=== PATIENT | female | born 1995 | race Caucasian/White ===

== ENCOUNTER → 2023-08-30 | Outpatient (CLI) | payer OTHER, SELFPAY ==
[2023-08-30 15:27] LABS: Bacteria 0 SEEN /hpf (None Seen); Mucous, Urine 0 SEEN /hpf (<or=2+); Red Blood Cells-Urine 0 SEEN /hpf (0-5); Squamous Epithelial Cells - UA 0 SEEN /hpf (5-10)
--- OUTSIDE RECORDS SUMMARY | 2023-08-30 15:43 | XMS RPT_ITS | CCD ---
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 Name Role Phone Maya SUPERVISOR DATA PROCESSING, Lynnette Moreno Unavailable MAISHA FARMER Attending Unavailable REFERRED, SELF Referring Unavailable MIRIAM MORENO Primary Care Unavailable ALOK SCHILLING Attending Unavailable REFERRED, SELF Referring Unavailable MIRIAM MORENO Primary Care Unavailable YOSHI GAONA Attending Unavailable REFERRED, SELF Referring Unavailable ALOK SCHILLING Primary Care Unavailable ALOK SCHILLING Attending Unavailable REFERRED, SELF Referring Unavailable ALOK SCHILLING Primary Care Unavailable ALOK SCHILLING Attending Unavailable REFERRED, SELF Referring Unavailable TONIE ALOK Primary Care Unavailable Samia Paige MD Primary Care Provider [phone] BLESSING LENZ Attending Unavailable SAMIA PAIGE Primary Care Unavailable Allergies Allergy Classification Reported Allergen(s) Allergy Type Date of Onset Reaction(s) Facility (3 sources) minocycline drug allergy 7 [facility] (3 sources) sulfamethoxazole / trimethoprim drug allergy 7 [facility] (3 sources) Sulfamethoxazole / Trimethoprim; Translations: [SULFAMETHOXAZOLE-TR IMETHOPRIM] Drug Allergy 5 [facility] Repository (3 sources) Tetracycline; Translations: [TETRACYCLINE] Drug Allergy 0 [facility] Repository (2 sources) Minocycline; Translations: [MINOCYCLINE] Drug Allergy 5 [facility] Medications Completed/Discontinued Medications Medication Drug Class(es) Dates Sig (Normalized) Sig (Original) citric acid 0.01 mg/mg / lactic acid 0.018 mg/mg / potassium bitartrate 0.004 mg/mg vaginal gel (2 sources) Calculi Dissolution Agent, Anti-coagulant Start: 06-01-2023 End: 06-01-2023 lactic idpe-nwpcfc-exqerv ium (PHEXXI) 1.8-1-0.4 % gel Insert 1 prefilled applicator vaginally immediately before or up to 1 hour before each act of vaginal intercourse 60 g 3 06/01/2023 Active Problems Problem Classification Problem Date Documented Da te Episodic/Chronic Disorders of lipid metabolism (1 source) Pure hypercholesterolemi a; Translations: [Pure hypercholesterolemi a, unspecified] Onset: 02-13-2023 06-01-2023 Chronic Menstrual disorders (1 source) Dysmenorrhea; Translations: [Dysmenorrhea, unspecified] Onset: 10-25-2015 10-25-2015 Chronic Other gastrointestinal disorders (1 source) Irritable bowel syndrome characterized by constipation; Translations: [Irritable bowel syndrome with constipation] Onset: 02-13-2023 06-01-2023 Chronic Unclassified (2 sources) Contraception care education ; Translations: [Other specified counseling] Onset: 05-22-2017 05-22-2017 Results Test Name Value Interpretation Reference Range Facil ity Vital Signs Date Time Vital Sign Value Performing Clinician Facility 05-22-2017 08:03-0400 BMI (Body Mass Index) 20.77 kg/m2 Lynnette Trejo NP [facility] 05-22-2017 08:03-0400 Body Temperature 96.3 [degF] Lynnette Trejo NP [facility] 05-22-2017 08:03-0400 BP Diastolic 67 mm[Hg] Lynnette Trejo NP [facility] 05-22-2017 08:03-0400 BP Systolic 100 mm[Hg] Lynnette Trejo [facility] 05-22-2017 08:03-0400 Height 162.56 cm Lynnette Trejo NP [facility] 05-22-2017 08:03-0400 Pulse (Heart Rate) 89 /min Lynnette Trejo [facility] 05-22-2017 08:03-0400 Respiratory Rate 16 /min Lynnette Trejo NP [facility] 05-22-2017 08:03-0400 Weight 54.89 kg Lynnette Trejo NP [facility] 05-22-2017 08:03-0400 Weight 54.88 kg Lynnette Trejo SUPERVISOR DATA PROCESSING [facility] Encounters Encounter Date Encounter Type Care Provider Facility Start: 06-01-2023 Telephone encounter Blessing rojas PIPE CUTTER.MAXIMILIANO Work Phone: OB/Gynecology Procedures Date Procedure Procedure Detail Performing Clinician Start: 05-22-2017 Contraception care education Contraception counseling Lynnette Trejo NP Plan of Treatment Date Care Activity Detail Author Start: 01-23-2028 Urine microalbumin profile DTaP,Tdap,Td Vaccine (2 - Td or Tdap) [facility] Start: 04-21-2025 Pap Testing Pap Testing [facility] Start: 05-04-2023 Influenza vaccination Influenza Vaccine (#1) [facility] Start: 09-03-2022 Depression Assessment Depression Assessment [facility] Start: 03-17-2021 Covid-19 Vaccine (2 - Booster for Jeffery series) Covid-19 Vaccine (2 - Booster for Jeffery series) [facility] Start: 05-25-2017 End: 05-25-2017 Appointment Appointment [facility] Start: 05-22-2017 End: 05-22-2017 Appointment Appointment [facility] Start: 2011 Peds To Adult Transition Annual Assessment Peds To Adult Transition Annual Assessment [facility] Start: 2009 Peds To Adult Transition Initial Discussion Peds To Adult Transition Initial Discussion [facility] Start: 1997 Hepatitis B Vaccine (1 of 3 - 3-dose series) Hepatitis B Vaccine (1 of 3 - 3-dose series) [facility] en's Care [facility] Immunizations Immunization Date Immunization Notes Care Provider Fa cility 07-10-2022 influenza virus vacc ine, unspecified formulation Blessing Deisi PIPE CUTTER.CHAIRMAN & CHIEF EXECUTIVE OFFICER Work Phone: [facility] 05-24-2021 influenza, high dose seasonal, preservative-free Blessing Deisi PIPE CUTTER.CHAIRMAN & CHIEF EXECUTIVE OFFICER Work Phone: [facility] 06-11-2019 influenza, injectabl e, quadrivalent, contains preservative Blessing [place] PIPE CUTTER.CHAIRMAN & CHIEF EXECUTIVE OFFICER Work Phone: [facility] Payers Date Payer Category Payer Private Health Insurance [facility] [id number] 2022-Present [phone] [address] [place] [id number] PPO [id number] 2022 Private Health Insurance [id number] 1997 Unknown [id number] 1997 Unknown [id number] 1997 Unknown [id number] 1997 Unknown [id number] 1997 Unknown [id number] Unknown [id number] Social History Date Type Detail Facility Start: 06-01-2023 Tobacco smoking stat [facility] Never smoked tobacco [facility] Work Phone: Start: 06-01-2023 Tobacco use and exposure Smokeless tobacco non-user [facility] Work Phone: Start: 06-01-2023 Alcohol intake Current drinke r of alcohol (finding) [facility] Start: 07-20-2020 End: 06-01-2023 History of Social function [facility] Start: 07-20-2020 End: 06-01-2023 Social connection and isolation panel [facility] Frequency of Social Gatherings with Friends and Family Not on file [facility] Work Phone: Do you belong to any clubs or organizations such as cheondoism groups, unions, fraternal or athletic groups, or school groups? No [facility] How often to you hav e a drink containing alcohol? 2-3 time sa week [facility] How many standard drinks containing alcohol do you have on a typical day? 1 or 2 [facility] How often do you hav e 6 or more drinks on 1 occasion? Never [facility] Do you feel stress - tense, restless, nervous, or anxious, or unable to sleep at night because your mind is troubled all the time - these days [OSQ] To some extent [facility] (I/We) worried wheth er (my/our) food would run out before (I/we) got money to buy more. Never true [facility] Work Phone: Start: 07-06-2020 Education 17 [facility] Start: 06-11-2019 Alcohol Comment social [facility] Start: 1997 Sex Assigned At Female C [facility] Start: 06-05-2019 Gender identity Identifies as female gender (finding) [facility] Start: 06-05-2019 Sexual orientation Heterosexual (maribel figueroa) [facility] NEGATED: Highlighted rowStart: NINF History of tobacco use Passive smoker [facility] Work Phone: Note 06-01-2023 Telephone Encounter - Blessing Lenz APRN.CNP - 06/01/2023 4:05 PM EDTTelephone Encounter - Anne Velasquez LPN - 06/01/2023 3:55 PM EDT Note Date & Type Note Facility 06-01-2023 Miscellaneous Notes Formattin g of this note might be different from the original. RX sent to [facility]. Blessing Lenz APRN.CNP Spoke with pt and she would like for you to sent to [facility] pharmacy. No need to call pt back. Anne Velasquez LPN I will send it to the [facility] if the pt would like me to do that. Please check with her. Blessing Lenz APRN.CNP Received denial for Phexxi. Please advise. Storm through [employer] is over $300. Anne Velasquez LPN Prior authorization submitted for Phexxi. Will await further response from pt's insurance. Anne Velasquez LPN documented in this encounter [facility] Progress note 06-01-2023 Note Date & Type Note Facility 06-01-2023 Note HNO ID: [id number] Author: Blessing Lenz APRN.CHAIRMAN & CHIEF EXECUTIVE OFFICER Service: ? 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 Menses: cycles every 30-33 days and 6 days of flow. Contraception: none-natural family planning HPV vaccine: Yes Last Pap: 04/28/2022 normal HPV: N/A History of abnormal pap: No Last mammogram: never Sexually active: Yes Pain with intercourse: No Postcoital bleeding: No OB History T0 L0 SAB0 IAB0 Ectopic0 Multiple0 Live Births0 Inverform Machine Operator History LMP: 04/30/2023, Having periods Age at Menarche: Age at First : Age at Menopause: Inverform Machine Operator History Comments: Sexual Activity: Yes; Male Contraception: Condom, Pill PAST MEDICAL HISTORY Diagnosis Date Seasonal allergies PAST SURGICAL HISTORY Procedure Laterality Date PAST SURGICAL HISTORY OF age 3 eye surgery FAMILY HISTORY Problem Relation Age of Onset other (Other) Mother caity Skin Cancer Mother Hypertension Father other (Dementia) Maternal Grandmother Cancer Paternal Grandmother skin Colon Cancer Paternal Grandmother Diabetes Paternal Grandfather Cancer Paternal Uncle skin SOCIAL HISTORY Social History Tobacco Use Smoking status: Never Passive exposure: Never Smokeless tobacco: Never Vaping Use Vaping Use: Never used Substance Use Topics Alcohol use: Yes Comment: social Drug use: No REVIEW OF SYSTEMS Abdomen: No abdominal pain, nausea, vomiting, diarrhea, or constipation. No bloating, early satiety, indigestion, or increased flatulence. Bladder: No dysuria, gross hematuria, urinary frequency, urinary urgency, or incontinence. Breast: No breast lumps, nipple d/c, overlying skin changes, redness or skin retraction. Allergies and current medication updated:Yes EXAM: Ht 5' 4 (1.63m) Wt 117 lb 6.4 oz (53.3kg) LMP 04/30/2023 BMI 20.14 kg/(m2). GENERAL: pleasant, female in no apparent distress HEENT: Normocephalic, atraumatic, mucus membranes moist, and no lesions NECK: Supple, full range of motion, no adenopathy, and thyroid normal DERMATOLOGY: Normal, without lesions, non-icteric, and non-hirsute BREAST: soft, non-tender, symmetric, no dominant mass, normal nipple-areolar complex, no lymphadenopathy, and no nipple discharge CHEST: Normal inspiratory effort ABDOMEN: soft, non-tender, and no masses PELVIC: external genitalia normal, normal Bartholin's glands, urethra, Beaulieu's glands, no vulvar lesions, no cervical lesions, good vaginal support, physiologic discharge present, normal appearing perineal body and perianal region BIMANUAL: uterus normal size, shape and consistency, no adnexal masses, and non-tender RECTOVAGINAL: deferred. NEURO: alert and oriented x3,exam grossly non-focal EXTREMITIES: normal ASSESSMENT/PLAN: 1) Health maintenance: Pap/HPV up to date. Mammogram starting age 40. Nutrition, exercise and routine health maintenance exams reviewed. Calcium/Vitamin D supplementation information provided. HPV vaccine: completed series 2) Contraception: natural family planning. Contraceptive options reviewed and information provided. 3) STD screening: Declined STD check. 4) Follow up one year or sooner as needed Phexxi and natural cycles kit RX given Blessing Lenz APRN.CNP [facility] Summary Purpose Family History No Family History Records FoundNo Family History Records Found Advance Directives No Advanced Directives Records FoundNo Advanced Directives Records Found Reason for Referral Specialty Diagnoses / Procedures Referred By Cameron martínez Referred To Contact Blessing Lenz APRN.MAXIMILIANO [address] [place] [address] Referral ID Status Reason Start Date Expiration Date Visits Re quested Visits Authorized [id number] Closed 1 1 Additional Source Comments INFORMATION SOURCE (unrecogn ized section and content) DATE CREATED AUTHOR AUTHOR'S NACHO ATION 06/08/2023 [facility] Source Comments (unrecognize d section and content) In the event this informatio n is protected by the Federal Confidentiality of Alcohol and Drug Abuse Patient Records regulations: The Federal rules restrict any use of the information to criminally investigate or prosecute any alcohol or drug abuse patient.[facility] Reason for Visit (unrecogniz ed section and content) Care Teams (unrecognized sec tion and content) FOR RECORDS PERTAINING TO PATIENTS WHO ARE OR HAVE BEEN ENROLLED IN A CHEMICAL DEPENDENCY/SUBSTANCEABUSE PROGRAM, SOME INFORMATION MAY BE OMITTED. This clinical summary was aggregated from multiple sources. Caution should be exercised in using it in the provision of clinical care. This summary normalizes information from multiple sources, and as a consequence, information in this document may materially change the coding, format and clinical context of patient data. In addition, data may be omitted in some cases. CLINICAL DECISIONS SHOULD BE BASED ON THE PRIMARY CLINICAL RECORDS. [employer] [facility]. provides no warranty or guarantee of the accuracy or completeness of information in this document.
[2023-08-30 17:33] LABS: Color, Urine Straw (Yellow); Glucose, Dipstick Normal (Normal); Ketone-Dipstick Negative (Negative); Leukocyte Esterase-Dipstick 100 /ul (Negative); Nitrite-Dipstick Negative (Negative); Occult Blood-Urine 25 /ul (Negative); Protein-Dipstick Negative (Negative); Specific Gravity, Urine 1.005 (1.002-1.030); Urine Bilirubin Dipstick Negative (Negative); Urine Clarity Clear (Clear); Urine Urobilinogen Normal (Normal); Urine pH 6.5 (5.0 - 8.0)
[2023-08-30 17:48] LABS: White Blood Cells 0-5 SEEN /hpf (0-5)
== END | disposition home or self-care (01) ==
PROVIDERS: PCP Internal Medicine; Visit Provider Physician Assistant Surgical
DX: R30.0 Dysuria (principal)
CPT/HCPCS: 81001; 87086

== ENCOUNTER → 2023-12-26 | Outpatient (CLI) | payer OTHER, SELFPAY | END | disposition home or self-care (01) | LOC: LAB 10:20 | PROVIDERS: PCP Internal Medicine; Referring Provider Physician Assistant; Visit Provider Physician Assistant | DX: N39.0 Urinary tract infection, site not specified (principal) | CPT/HCPCS: 87086; 87088 ==

== ENCOUNTER → 2025-07-03 | Outpatient (CLI) | payer OTHER, SELFPAY ==
--- NOTE | 2025-07-03 09:01 | US_ITS ---
PROCEDURE: TRANSVAGINAL W/PREG US 07/03/2025 REASON FOR EXAM: WELLBEING TECHNIQUE: Procedure Code: [id number] Modality: US Procedure: TRANSVAGINAL W/PREG US COMPARISON: None. FINDINGS Single intrauterine gestation is seen. CRL: 9 mm (7 weeks and 0 days) heart rate: 125 bpm. The yolk sac is normal. Estimated date of delivery by ultrasound is February 17, 2026. Uterus: The uterus measures 9.2 x 5.6 x 5.5 cm. Homogenous appearance without evidence of discrete cyst, echogenic calculi, or mass. Multiple simple nabothian cysts visualized in the cervix. Right ovary: The right ovary is normal in size measuring 3.7 x 3 x 2 cm. Probable corpus luteal cyst. Blood flow to the adnexa is normal with arterial and venous waveforms documented. Left ovary: The left ovary is normal in size measuring 3.6 x 3 x 1.7 cm. No suspicious masses. Blood flow to the adnexa is normal with arterial and venous waveforms documented. No ascites. US/Transvaginal w/Preg US IMPRESSION: 1. Single living intrauterine gestation with an estimated age of 7 weeks and 0 days. Recommend anatomic survey at 18-22 weeks estimated gestational age. 2. heart rate of 125 bpm. Reading Location: [id number]
== END | disposition home or self-care (01) ==
LOC: US 08:59
PROVIDERS: PCP Internal Medicine; Referring Provider Obstetrics & Gynecology; Visit Provider Obstetrics & Gynecology
DX: N91.2 Amenorrhea, unspecified (principal)
CPT/HCPCS: 76817

== ENCOUNTER → 2025-07-17 | Outpatient (CLI) | payer OTHER, SELFPAY ==
[2025-07-20 21:07] LABS: Chlamydia By Nucleic Acid AMP Negative (Negative); Gonococcus By Nucleic Acid AMP Negative (Negative)
== END | disposition home or self-care (01) ==
LOC: LABSPEC 16:51
PROVIDERS: PCP Internal Medicine; Referring Provider Obstetrics & Gynecology; Visit Provider Obstetrics & Gynecology
DX: O09.90 Supervision of high risk pregnancy, unspecified, unspecified trimester (principal); Z12.4 Encounter for screening for malignant neoplasm of cervix; Z3A.00 Weeks of gestation of pregnancy not specified
CPT/HCPCS: 87086; 87491; 87591; 88175; G0145

== ENCOUNTER → 2025-07-28 | Outpatient (CLI) | payer OTHER, SELFPAY ==
[2025-07-28 14:46] LABS: Hematocrit 36.5 % (37-47); Hemoglobin 12.7 g/dL (12.0-15.0); Immature Granulocytes Count 0.030 X10^3/uL (0.0-0.0); Mean Corp Hgb Conc 34.8 g/dL (32-36); Mean Corpuscular Volume 91.7 fL (81-99); Mean Platelet Vol. 8.8 fl (6.2-12.0); NRBC Flagged by Analyzer 0 % (0-5); Platelet Count 247 K/mm3 (150-450); RBC Distribution Width CV 12.5 % (11.6-14.6); RBC Distribution Width SD 42.1 fl (35.1-43.9); Red Blood Count 3.98 M/mm3 (4.2-5.4); White Blood Count 7.2 K/mm3 (4.4-11.0)
[2025-07-28 17:25] LABS: HIV Nonreactive (Nonreactive); Hepatitis B Surface Antigen Nonreactive (Nonreactive); Hepatitis C Antibody Nonreactive (Nonreactive); Syphilis Antibodies Nonreactive (Nonreactive)
--- OUTSIDE RECORDS SUMMARY | 2025-07-28 18:38 | XMS RPT_ITS | CCD ---
Author Organization [facility] Care Team Providers Care Artist Representative Name Role Phone Maya CERTIFIED HAND THERAPIST, Lynnette Moreno Unavailable MAISHA FARMER Attending Unavailable REFERRED, SELF Referring Unavailable ALLIE MORENO Primary Care Unavailable AGUSTINA SCHILLING Attending Unavailable REFERRED, SELF Referring Unavailable ALLIE MORENO Primary Care Unavailable YOSHI GAONA Attending Unavailable REFERRED, SELF Referring Unavailable SCHILLING, AGUSTINA Primary Care Unavailable SCHILLING, AGUSTINA Attending Unavailable REFERRED, SELF Referring Unavailable SCHILLING, AGUSTINA Primary Care Unavailable SCHILLINGAGUSTINA Attending Unavailable REFERRED, SELF Referring Unavailable SCHILLING, AGUSTINA Primary Care Unavailable Benjie KAUR, Diana Primary Care Provider BLESSING LIPSCOMB Attending Unavailable DIANA PAIGE Primary Care Unavailable Dr. Kaylyn Walter Primary Care Provider Dr. Kaylyn Walter Referring Provider [phone] NED Edouard Attending Provider [phone] Dr. Kaylyn Walter Primary Care Provider Dr. Kaylyn Walter Referring Provider [phone] Taina MARINO, PA Roman Carr Attending Provider Cornell CERTIFIED HAND THERAPIST-CSurekha Primary Care Provider Cornell CERTIFIED HAND THERAPIST-CSurekha Referring Provider [phone] Singh DIEHL-CRadha Attending Provider Dr. Kaylyn Walter MD Primary Care Provider Assessment, Health Risk Attending Provider Unava ilable Assessment, Health Risk Referring Provider Unava ilable Jose Angel KAUR, Dr. Patiño Attending Provider [facility], Kaylyn Primary Care Unavailable Rosaura Iniguez Attending Unavaillianna e Jose Angel, Kaylyn Referring Unavailable Rosaura Iniguez Attending Unavaillianna e Rosaura Iniguez Referring Unavailabl e Jose Angel, Kaylyn Primary Care Unavailable Assessment, Health Risk Attending Unavaila ble Assessment, Health Risk Referring Unavaila ble [facility], Kaylyn Primary Care Unavailable GarfieldulloSurekha Referring Unavailable [facility], Kaylyn Primary Care Unavailable Lazaro Walterycia Attending Unavailable [facility], Kaylyn Referring Unavailable Demetria Kate Attending Unavailable Jose Angel, Kaylyn Primary Care Unavailable Ferullo, Surekha Primary Care Unavailable FerulloShwetaSurekha Referring Unavailable Radha Winters Attending Unavailable Allergies Allergy Classification Reported Allergen(s) Allergy Type Date of Onset Reaction(s) Facility (3 sources) minocycline drug allergy 7 [facility] (3 sources) sulfamethoxazole / trimethoprim drug allergy 7 [facility] (3 sources) Sulfamethoxazole / Trimethoprim; Translations: [SULFAMETHOXAZOLE-TR IMETHOPRIM] Drug Allergy 5 [facility] Repository (8 sources) Tetracycline; Translations: [TETRACYCLINE] Drug Allergy 0 [facility] Repository (2 sources) Minocycline; Translations: [MINOCYCLINE] Drug Allergy 5 [facility] (4 sources) Sulfamethoxazole Drug Allergy 3 [facility] (4 sources) Trimethoprim Drug Allergy 3 [facility] (1 source) Sulfamethoxazole Drug Allergy 5 [facility] Repository (1 source) Trimethoprim Drug Allergy 5 [facility] Repository Medications Current Medications Medication Drug Class(es) Dates Sig (Normalized) Sig (Original) acne vitamin (2 sources) Start: 03-20-2024 acne vitamin Active OTHER March 20, 2024 12:00am choline 500 mg oral tablet (1 source) Start: 03-26-2025 take 1 tablet by mouth once daily Choline Bitartrate 500 mg tablet Active 500 mg PO daily March 26, 2025 12:00am D-Mannose (4 sources) Start: 02-14-2022 take 1 capsule by mouth once as needed D-Mannose 500 mg capsule Active mg PO .prn February 14, 2022 12:00am Start: 02-14-2022 take 1 mg by mouth o nce as needed D-Mannose Active MG PO .prn February 14, 2022 12:00am Start: 02-14-2022 take 1 mg by mouth o nce as needed D-Mannose Active MG PO .prn February 13, 2022 11:00pm Magnesium Glycinate 100 mg magnesium capsule (1 source) Start: 03-26-2025 Magnesium Glyc inate 100 mg magnesium capsule Active mg PO March 26, 2025 12:00am Multivitamin preparation (2 sources) Start: 02-14-2022 take 1 tablet by mouth once daily Multivitamin Active 1 TABLET PO DAILY February 14, 2022 12:00am Start: 02-14-2022 take 1 tablet by catalina once daily Multivitamin Active 1 TABLET PO DAILY February 13, 2022 11:00pm Multivitamin tablet (2 sources) Start: 02-14-2022 Multivitamin t ablet Active 1 {tbl} PO DAILY February 14, 2022 12:00am New[place]-3 Fatty Acids-Fish Oil (Fish Oil Pearls) 300-400 mg capsule (4 sources) Start: 02-14-2022 [place]-3 Fatty Acids-Fish Oil (Fish Oil Pearls) 300-400 mg capsule Active 1 NMA PO DAILY February 14, 2022 12:00am Start: 02-14-2022 take 1 capsule by mo [facility] once daily [place]-3 Fatty Acids-Fish Oil (Fish Oil Pearls) 300-400 mg capsule Active 1 CAP PO DAILY February 14, 2022 12:00am Start: 02-14-2022 take 1 capsule by mo uth once daily [place]ry-3 Fatty Acids-Fish Oil (Fish Oil Pearls) 300-400 mg capsule Active 1 CAP PO DAILY February 13, 2022 11:00pm pms vitamin (2 sources) Start: 03-20-2024 pms vitamin Ac tive OTHER March 20, 2024 12:00am Completed/Discontinued Medications Medication Drug Class(es) Dates Sig (Normalized) Sig (Original) amoxicillin 500 mg oral capsule (4 sources) Penicillin-class Antibacterial Start: 11-29-2022 End: 12-09-2022 take 1 capsule by mouth three times daily Amoxicillin 500 mg capsule Discontinued 500 mg PO THREE TIMES A DAY 30 10 0 November 29, 2022 12:00am December 08, 2022 12:00am December 09, 2022 12:11am cephalexin 500 mg oral capsule (4 sources) Cephalosporin Antibacterial Start: 08-30-2023 End: 09-09-2023 take 1 capsule by mouth every twelve hours Cephalexin 500 mg capsule Discontinued 500 mg PO Q12H 20 10 0 August 30, 2023 1:00am September 08, 2023 1:00am September 09, 2023 1:04am citric acid 0.01 mg/mg / lactic acid 0.018 mg/mg / potassium bitartrate 0.004 mg/mg vaginal gel (2 sources) Calculi Dissolution Agent, Anti-coagulant Start: 06-01-2023 End: 06-01-2023 lactic xoqb-ulntwg-ybrytl ium (PHEXXI) 1.8-1-0.4 % gel Insert 1 prefilled applicator vaginally immediately before or up to 1 hour before each act of vaginal intercourse 60 g 3 06/01/2023 Active Comment on above: Insert 1 prefilled a pplicator vaginally immediately before or up to 1 hour before each act of vaginal intercourse Cranberry (4 sources) Non-Standardized Food Allergenic Extract, Non-Standardized Plant Allergenic Extract Start: 02-14-2022 End: 03-20-2024 take 1 capsule by mouth at mealtime Cranberry 500 mg capsule Discontinued 500 mg PO .prn February 14, 2022 12:00am March 20, 2024 1:00pm administer with meals Start: 02-14-2022 take 500 mg by mouth at mealti me Cranberry Active 500 MG PO .prn February 14, 2022 12:00am administer with meals Start: 02-14-2022 take 500 mg by mouth at mealti me Cranberry Active 500 MG PO .prn February 13, 2022 11:00pm administer with meals docosahexaenoic acid/epa (FISH OIL ORAL) (1 source) docosahexaenoic acid/epa (FISH OIL ORAL) Take by mouth. 0 Active Comment on above: Take by mouth. 21 day ethinyl estradiol 0.150767 mg/hr / etonogestrel 0.005 mg/hr vaginal ring (2 sources) Progestin, Estrogen Start: 05-23-2017 NUVARING 0.12-0.015 MG/24HR RING 1 vaginally as directed ETONOGESTREL-ETHINYL ESTRADIOL [id number] Lynnette Trejo CERTIFIED HAND THERAPIST Start: 05-23-2017 NUVARING 0.12- 0.015 MG/24HR RING 1 vaginally as directed ETONOGESTREL-ETHINYL ESTRADIOL [id number] Lynnette Trejo CERTIFIED HAND THERAPIST Levonorgestrel-Ethinyl Estrad (8 sources) Progestin, Estrogen, Progestin-containing Intrauterine Device Start: 02-14-2022 End: 02-12-2023 take 1 tablet by mouth once daily Levonorgestrel-Ethinyl Estrad (Larissia) 0.1-20 mg-mcg tablet Discontinued 1 {tbl} PO DAILY 84 February 14, 2022 3:39pm February 12, 2023 7:38am Uses contraception Other specified health status Start: 02-14-2022 End: 02-12-2023 take 1 tablet by mouth once daily Levonorgestrel-Ethinyl Estrad (Larissia) 0.1-20 mg-mcg tablet Discontinued 1 {tbl} PO DAILY February 14, 2022 3:39pm February 12, 2023 7:38am Start: 02-14-2022 End: 02-12-2023 take 1 tablet by mouth once daily Levonorgestrel-Ethinyl Estrad (Larissia) 0.1-20 mg-mcg tablet Discontinued 1 TABLET PO DAILY February 14, 2022 3:39pm February 12, 2023 7:38am Start: 02-14-2022 End: 02-12-2023 take 1 tablet by mouth once daily Levonorgestrel-Ethinyl Estrad (Larissia) 0.1-20 mg-mcg tablet Discontinued 1 TABLET PO DAILY February 14, 2022 2:39pm February 12, 2023 6:38am Start: 02-14-2022 End: 02-14-2022 take 1 tablet by mouth once daily Levonorgestrel-Ethinyl Estrad (Larissia) 0.1-20 mg-mcg tablet Discontinued 1 {tbl} PO DAILY February 14, 2022 12:00am February 14, 2022 3:40pm Start: 02-14-2022 End: 02-14-2022 take 1 tablet by mouth once daily Levonorgestrel-Ethinyl Estrad (Larissia) 0.1-20 mg-mcg tablet Discontinued 1 TABLET PO DAILY February 14, 2022 12:00am February 14, 2022 3:40pm Start: 02-14-2022 End: 02-14-2022 take 1 tablet by mouth once daily Levonorgestrel-Ethinyl Estrad (Larissia) 0.1-20 mg-mcg tablet Discontinued 1 TABLET PO DAILY February 13, 2022 11:00pm February 14, 2022 2:40pm NORGESTIMATE-ETH ESTRADIOL (2 sources) Progestin, Estrogen Start: 05-22-2017 SPRINTEC 28 0.25-35 MG-MCG TABS NORGESTIMATE-ETH ESTRADIOL [id number] Lynnette Trejo CERTIFIED HAND THERAPIST Start: 05-22-2017 End: 05-23-2017 SPRINTEC 28 0.25-35 MG-MCG T ABS NORGESTIMATE-ETH ESTRADIOL [id number] Lynnette Trejo CERTIFIED HAND THERAPIST FA/mv,Ca,iron,min/lycopene/l ut (MULTIVITAL ORAL) (1 source) FA/mv,Ca,iron,mi n/lycopene/lut (MULTIVITAL ORAL) Take by mouth. 0 Active Comment on above: Take by mouth. fosfomycin 3000 mg powder fo r oral solution (7 sources) S t a r t : 0 4 - 2 4 - 2 0 2 4 E n d : 0 7 - 1 8 - 2 0 2 4 take 3 g by mouth once as needed Fosfomycin Tromethamine 3 gram packet Discontinued 3 g PO ONCE as needed March 20, 2024 1:00pm March 20, 2024 1:23pm miSOPROStol 0.2 mg oral tabl et (5 sources) Prostaglandin E1 Analog S t a r t : 0 9 - 1 9 - 2 0 1 7 E n d : 0 9 - 2 0 - 2 0 1 7 take 2 tablets by mouth once daily CYTOTEC 200 MCG TABS 2 tab po night prior and day of procedure MISOPROSTOL [id number] Lynnette Trejo CERTIFIED HAND THERAPIST Start: 05-22-2017 End: 05-23-2017 take 2 tablets by mouth once daily CYTOTEC 200 MCG TABS 2 tab po night prior and day of procedure MISOPROSTOL [id number] Lynnette Trejo CERTIFIED HAND THERAPIST Start: 05-22-2017 take 2 tablets by mo uth once daily CYTOTEC 200 MCG TABS 2 tab po night prior and day of procedure MISOPROSTOL [id number] Lynnette Trejo CERTIFIED HAND THERAPIST montelukast 10 mg oral tablet (17 sources) Leukotriene Receptor Antagonist Start: 02-14-2022 End: 03-26-2025 take 1 tablet by mouth once daily Montelukast (Singulair) 10 mg tablet Discontinued 10 mg PO DAILY 90 0 February 02, 2023 3:55pm February 12, 2023 7:45am Seasonal allergies Other seasonal allergic rhinitis NORGESTIMATE-ETH ESTRADIOL (3 sources) Start: 05-22-2017 End: 05-23-2017 SPRINTEC 28 0.25-35 MG-MCG TABS NORGESTIMATE-ETH ESTRADIOL [id number] Lynnette Trejo CERTIFIED HAND THERAPIST Start: 05-22-2017 SPRINTEC 28 0. 25-35 MG-MCG TABS NORGESTIMATE-ETH ESTRADIOL [id number] Lynnette Trejo CERTIFIED HAND THERAPIST Problems Problem Classification Problem Date Documented Da te Episodic/Chronic Administrative/social admission (1 source) First encounter by subject; Translations: [Persons encountering health services in other specified circumstances] 03-26-2025 Episodic Allergic reactions (5 sources) Allergic condition; Translations: [Allergy, unspecified, initial encounter] 02-14-2022 Episodic Contraceptive and procreative management (2 sources) Patient encounter status; Translations: [Encounter for other procreative management] 02-13-2025 Episodic Disorders of lipid metabolism (5 sources) Pure hypercholesterolemi a; Translations: [Pure hypercholesterolemi a, unspecified] Onset: 02-13-2023 06-01-2023 Chronic Genitourinary symptoms and ill-defined conditions (2 sources) History of urinary tract infection; Translations: [Personal history of urinary (tract) infections] 03-20-2024 Episodic Immunizations and screening for infectious disease (4 sources) Contact with and (suspected) exposure to other viral communicable diseases; Translations: [Contact with or suspected exposure to other viral communicable disease] 02-12-2023 Episodic Menstrual disorders (2 sources) Dysmenorrhea; Translations: [Dysmenorrhea, unspecified] Onset: 10-25-2015 10-25-2015 Chronic Other gastrointestinal disorders (1 source) Irritable bowel syndrome characterized by constipation; Translations: [Irritable bowel syndrome with constipation] Onset: 02-13-2023 06-01-2023 Chronic Other gastrointestinal disorders (5 sources) Irritable bowel syndrome; Translations: [Irritable bowel syndrome without diarrhea] 02-14-2022 Chronic Other upper respiratory disease (1 source) Other seasonal allergic rhinitis; Translations: [Other seasonal allergic rhinitis] Onset: 03-26-2025 Chronic Other upper respiratory infections (8 sources) Acute sinusitis; Translations: [Acute sinusitis, unspecified] 02-12-2023 Episodic Unclassified (2 sources) Contraception care education ; Translations: [Other specified counseling] Onset: 05-22-2017 05-22-2017 Urinary tract infections (4 sources) Urinary tract infection, site not specified; Translations: [Urinary tract infection, site not specified] 08-30-2023 Episodic Results Test Name Value Interpretation Reference Range Facility Office Visit Reporton 2024 Office Visit Report [facility] [address] [place] [id number] OFFICE VISIT Date of Service: 07/03/25 MR#: [id number] Acct: [id number] Patient: SCARLET HERNANDEZ Rep #: [id number] : 1995 Provider: KEDAR Mix ams Age/Sex: 30/F [place] [facility] [place] Signed Intake Vital Signs 03/26/25 14:08 07/03/25 09:06 Height 5 ft 4 in 5 ft 4 in Weight: 118 lb 6 oz 120 lb 6 oz BMI 20.3 20.6 BP 116/70 102/68 Blood Pressure Location Lt brachial Position Sitting Respiration 16 Pulse 86 Pulse Source Monitor Temp 98.0 F Temp Source Temporal Pulse Oximetry (%) 96 Oxygen Delivery Method room air Intake Visit Reasons: PNOB Vitals Education Chief Complaint: In person PNOB Allergies sulfamethoxazole (From Bactrim) Allergy (Intermediate, Verified 07/03/25 08:16) hives tetracycline Allergy (Intermediate, Verified 07/03/25 08:16) hives trimethoprim (From Bactrim) Allergy (Intermediate, Verified 07/03/25 08:16) hives Medications ???Medication ???Instructions ???Recorded ???Confirmed ???Type omega-3 fatty acids 300 mg-fish 1 cap PO DAILY 02/14/22 07/03/25 H istory oil 400 mg capsule (Fish Oil Pearls) choline bitartrate 500 mg tablet 500 mg PO QDAY 03/26/25 07/03/25 H istory magnesium glycinate mg PO 03/26/25 07/03/25 History vits no.126-ferrous fum tab PO 07/03/25 07/03/25 History 28 mg iron-folic acid 800 mcg tablet (Classic ) Is last menstrual period known: Yes Post menopausal: No Patient : Yes Nurse's Note: Pt here for secondary amenorrhea. Vitals WNL. PNOB questions completed. Problem list, allergies, and medications updated. First trimester ACOG education completed. Assessment and Plan Assessment and Plan Orders: Orders CBC W/Diff, Automated 07/03/25 O09.90 - Supervision of high risk , unspecified, unspecified trimester Type Screen 07/03/25 O09.90 - Supervision of high risk , unspecified, unspecified trimester Rubella IgG 07/03/25 O09.90 - Supervision of high risk , unspecified, unspecified trimester Hepatitis C Antibody 07/03/25 O09.90 - Supervision of high risk , unspecified, unspecified trimester Hepatitis B Surface Antigen 07/03/25 O09.90 - Supervision of high risk , unspecified, unspecified trimester Culture, Urine 07/03/25 O09.90 - Supervision of high risk , unspecified, unspecified trimester Syphilis Antibodies 07/03/25 O09.90 - Supervision of high risk , unspecified, unspecified trimester Chlamydia/GC MAGALI aptima 07/03/25 O09.90 - Supervision of high risk , unspecified, unspecified trimester HIV 07/03/25 O09.90 - Supervision of high risk , unspecified, unspecified trimester PAP I-G w/rfx hrHPV-Aptima 07/03/25 Z12.4 - Encounter for screening for malignant neoplasm of cervix 07/06/25 1225 Date Demetria Kate CNM Cosigner Signature: Date (if applicable) CC: Normal [facility] Transvaginal w/Preg USon Transvaginal w/Preg US [facility] [address] [place] [address] [id number] Transvaginal w/Preg US MR#: [id number] Acct: [id number] Name: SCARLET HERNANDEZ Rep #: [id number] : 1995 F 30 From: Jan Victor DO PCP: Dr. Kaylyn Walter MD Status: [facility] Study: Transvaginal w/Preg US Date of Exam: 07/03/25 Exam# [id number] Ordering Dr: Rosaura Iniguez DO PROCEDURE: TRANSVAGINAL W/PREG US 07/03/2025 REASON FOR EXAM: WELLBEING TECHNIQUE: Procedure Code: USTVAGP Modality: US Procedure: TRANSVAGINAL W/PREG US COMPARISON: None. FINDINGS Single intrauterine gestation is seen. CRL: 9 mm (7 weeks and 0 days) heart rate: 125 bpm. The yolk sac is normal. Estimated date of delivery by ultrasound is February 17, 2026. Uterus: The uterus measures 9.2 x 5.6 x 5.5 cm. Homogenous appearance without evidence of discrete cyst, echogenic calculi, or mass. Multiple simple nabothian cysts visualized in the cervix. Right ovary: The right ovary is normal in size measuring 3.7 x 3 x 2 cm. Probable corpus luteal cyst. Blood flow to the adnexa is normal with arterial and venous waveforms documented. Left ovary: The left ovary is normal in size measuring 3.6 x 3 x 1.7 cm. No suspicious masses. Blood flow to the adnexa is normal with arterial and venous waveforms documented. No ascites. US/Transvaginal w/Preg US IMPRESSION: 1. Single living intrauterine gestation with an estimated age of 7 weeks and 0 days. Recommend anatomic survey at 18-22 weeks estimated gestational age. 2. heart rate of 125 bpm. Reading Location: [id number] CC: Dr. Kaylyn Walter MD; Dr. Rosaura Iniguez DO Security Compliance Specialist: Signed Normal [facility] Internal Medicine Office Vis itojulissa 03-25-2025 Internal Medicine Office Visit [facility] [address] [place] [address] [address] [place], [place] [id number] OFFICE VISIT Date of Service: 03/26/25 MR#: [id number] Acct: [id number] Name: SCARLET HERNANDEZ Rep #: [id number] : 1995 Provider: Dr. Kaylyn nieves MD Age/Sex: 29/F Location: [facility] [place] Status: Signed Intake Vital Signs 02/13/25 11:11 03/26/25 14:08 Height 5 ft 4 in 5 ft 4 in Weight: 118 lb 6 oz BMI 20.3 BP 116/70 Blood Pressure Location Lt brachial Position Sitting Respiration 16 Pulse 86 Pulse Source Monitor Temp 98.0 F Temp Source Temporal Pulse Oximetry (%) 96 Oxygen Delivery Method room air Intake Visit Reasons: YEARLY/RE-EST, SUREKHA PATIENT-OK PER DR WALTER Chief Complaint: Annual Cable Armorer Required: No Accompanied by: Self Is patient in pain?: No Allergies sulfamethoxazole (From Bactrim) Allergy (Intermediate, Verified 03/26/25 14:10) hives tetracycline Allergy (Intermediate, Verified 03/26/25 14:10) hives trimethoprim (From Bactrim) Allergy (Intermediate, Verified 03/26/25 14:10) hives Medications ???Medication ???Instructions ???Recorded ???Confirmed ???Type d-mannose 500 mg capsule mg PO .prn 02/14/22 03/26/25 Histo ry multivitamin 1 tab PO DAILY 02/14/22 03/26/25 H istory omega-3 fatty acids 300 mg-fish 1 cap PO DAILY 02/14/22 03/26/25 H istory oil 400 mg capsule (Fish Oil Pearls) acne vitamin OTHER 03/20/24 03/26/25 History fosfomycin tromethamine 3 gram 3 g PO ONCE PRN dysuria #3 ea 03/26/25 Rx oral packet pms vitamin OTHER 03/20/24 03/26/25 History choline bitartrate 500 mg tablet 500 mg PO QDAY 03/26/25 03/26/25 H istory magnesium glycinate mg PO 03/26/25 03/26/25 History montelukast 10 mg tablet 10 mg PO DAILY PRN 03/26/25 History (Singulair) Nurse's Note: Yearly. [facility] Medical History (Updated 03/26/25 @ 14:[address] Kaylyn Walter MD) GERARDO (generalized anxiety disorder) IBS (irritable bowel syndrome) High cholesterol UTI (urinary tract infection) Allergies Surgical History History of removal of skin mole History of eye surgery Family History (Updated 03/26/25 @ 14:[address] Kaylyn Walter MD) Mother Asthma Arthritis Autoimmune disorder RA and fibromyalgia Osteoporosis Skin cancer Brother Asthma Sister Thyroid disorder Thyroid cancer Father Arthritis Hypertension Grandfather Diabetes Cancer pancreatic Grandmother Colon cancer Melanoma Hypertension Uncle Melanoma Social History (Updated 03/26/25 @ 14:[address] 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 1. Little interest or pleasure in doing things: not at all 2. Feeling down, depressed, or hopeless: not at all 3. Trouble falling or staying asleep, or sleeping too much: not at all 4. Feeling tired or having little energy: not at all 5. Poor appetite or overeating: not at all 6. Feeling bad about yourself - or that you are a failure or have let yourself and your family down: not at all 7. Trouble concentrating on things, such as reading the newspaper or watching television: not at all 8. Moving or speaking so slowly that other people could have noticed? - Or the opposite - being so fidgety or restless that you have been moving around a lot more than usual: not at all 9. Thoughts that you would be better off or of hurting yourself in some way: not at all Total score: 0 If you checked off any problems, how difficult have these problems made it for you to do your work, take care of things at home, or get along with other people?: not difficult at all Source: Developed by Drs. Geovani Loza, Keira Kate, Wayne Mobley and colleagues, with an educational ileana from [employer]. GERARDO-7 BMS GERARDO-7 Feeling nervous, anxious, or on edge: 1 = Several days Not being able to stop or control worryin = Not at all Worrying too much about different things: 0 = Not at all Trouble relaxin = Not at all Being so restless that it is hard to sit still: 0 = Not at all Becoming easily annoyed or irritable: 0 = Not at all Feeling afraid as if something awful might happen: 0 = (more content not included)... Normal [facility] Absolute lymphocyte countOrd ered By: HEALTH ASSESSMENT on 03-13-2025 Lymphocytes Auto (Unsp spec) [#/Vol] 1.87 10*3/uL 0.83-4.51 [facility] Absolute neutrophil countOrd ered By: HEALTH ASSESSMENT on 03-13-2025 Neutrophils (Bld) [#/Vol] 2.6 10*3/uL 2.0-7.7 [facility] Absolute nucleated red blood cell countOrdered By: HEALTH ASSESSMENT on 03-13-2025 Nucleated RBC (Bld) [#/Vol] 0.00 10*3/uL 0-5 [facility] Anion gap in Serum or Plasma Ordered By: HEALTH ASSESSMENT on 03-13-2025 Anion gap [Moles/Vol] 9 mmol/L 5- [facility] BUN/creatinine ratioOrdered By: HEALTH ASSESSMENT on 03-13-2025 Urea nitrogen/Creatinine [Mass ratio] 22.0 mg/mg High 10- [facility] Bilirubin directOrdered By: HEALTH ASSESSMENT on 03-13-2025 Bilirubin.direct [Mass/Vol] 0.18 mg/dL 0.00-0.30 [facility] Bilirubin, totalOrdered By: HEALTH ASSESSMENT on 03-13-2025 Bilirubin [Mass/Vol] 0.44 mg/dL 0.00-1.30 [place] [facility] Employeeon 03-13-2025 Absolute Lymph 1.87 X10 3/uL Normal 0.83-4.51 [facility] Comment on above: Performed By: #### L 100.0200, L400.0100, L500.2900 #### [facility] Laboratory [address] [place], [address] Absolute Neut 2.6 X10 3/uL Normal 2.0-7.7 [facility] Comment on above: Performed By: #### L 100.0200, L400.0100, L500.2900 #### [facility] Laboratory [address] [place], [address] Basophils/100 WBC (Bld) 0.6 % Normal 0-1 [facility] Comment on above: Performed By: #### L 100.0200, L400.0100, L500.2900 #### [facility] Laboratory [address] [place], [address] Eosinophils/100 WBC (Bld) 3.0 % Normal 0-5 [facility] Comment on above: Performed By: #### L 100.0200, L400.0100, L500.2900 #### [facility] Laboratory [address] [place], [address] Erythrocyte distribution width (RBC) [Ratio] 12.2 % Normal 11.6-14.6 [facility] Comment on above: Performed By: #### L 100.0200, L400.0100, L500.2900 #### [facility] Laboratory [address] [place], [address] Hematocrit (Bld) [Volume fraction] 38.1 % Normal 37-47 [facility] Comment on above: Performed By: #### L 100.0200, L400.0100, L500.2900 #### [facility] Laboratory [address] [place], [address] Hemoglobin (Bld) [Mass/Vol] 12.7 g/dL Normal 12.0-15.0 [facility] Comment on above: Performed By: #### L 100.0200, L400.0100, L500.2900 #### [facility] Laboratory [address] [place], [address] Lymphocytes/100 WBC (Bld) 37.0 % Normal 19-41 [facility] Comment on above: Performed By: #### L 100.0200, L400.0100, L500.2900 #### [facility] Laboratory [address] [place], [address] MCH (RBC) [Entitic mass] 31.2 pg Normal 27.0-32.0 [facility] Comment on above: Performed By: #### L 100.0200, L400.0100, L500.2900 #### [facility] Laboratory [address] [place], [address] MCHC (RBC) [Mass/Vol] 33.3 g/dL Normal 32-36 [facility] Comment on above: Performed By: #### L 100.0200, L400.0100, L500.2900 #### [facility] Laboratory [address] [place], [address] MCV (RBC) [Entitic vol] 93.6 fL Normal 81-99 [facility] Comment on above: Performed By: #### L 100.0200, L400.0100, L500.2900 #### [facility] Laboratory [address] [place], [address] Monocytes/100 WBC (Bld) 7.3 % Normal 0-10 [facility] Comment on above: Performed By: #### L 100.0200, L400.0100, L500.2900 #### [facility] Laboratory [address] [place], [address] Neutrophils/100 WBC (Bld) 51.7 % Normal 47-70 [facility] Comment on above: Performed By: #### L 100.0200, L400.0100, L500.2900 #### [facility] Laboratory [address] [place], [address] NRBC # 0.00 10 3/uL Normal 0-5 [facility] Comment on above: Performed By: #### L 100.0200, L400.0100, L500.2900 #### [facility] Laboratory [address] [place], [address] Nucleated RBC (Bld) [#/Vol] 0 10*3/uL Normal 0-5 [facility] Comment on above: Performed By: #### L 100.0200, L400.0100, L500.2900 #### [facility] Laboratory [address] [place], [address] Platelet mean volume (Bld) [Entitic vol] 9.1 fL Normal 6.2-12.0 [facility] Comment on above: Performed By: #### L 100.0200, L400.0100, L500.2900 #### [facility] Laboratory [address] [place], [address] Platelets (Bld) [#/Vol] 240 10*3/uL Normal 150-450 [facility] Comment on above: Performed By: #### L 100.0200, L400.0100, L500.2900 #### [facility] Laboratory [address] [place], [address] RBC (Bld) [#/Vol] 4.07 10*6/uL Low 4.2-5.4 [facility] Comment on above: Performed By: #### L 100.0200, L400.0100, L500.2900 #### [facility] Laboratory [address] [place], [address] RDW SD 42.2 fl Normal 35.1-43.9 [facility] Comment on above: Performed By: #### L 100.0200, L400.0100, L500.2900 #### [facility] Laboratory [address] [place], [address] WBC (Bld) [#/Vol] 5.1 10*3/uL Normal 4.4-11.0 [facility] Comment on above: Performed By: #### L 100.0200, L400.0100, L500.2900 #### [facility] Laboratory [address] [place], [address] Calculated very low density lipoprotein (VLDL) cholesterol measurementOrdered By: HEALTH ASSESSMENT on 03-13-2025 Calculated very low density lipoprotein (VLDL) cholesterol measurement 13 mg/dL 5-40 [facility] Carbon dioxide, total [Moles /volume] in Central venous bloodOrdered By: HEALTH ASSESSMENT on 03-13-2025 CO2 [Moles/Vol] 25.7 mmol/L 21.0-32.0 [facility] Chloride assayOrdered By: ALTH ASSESSMENT on 03-13-2025 Chloride [Moles/Vol] 107 mmol/L 98-108 [facility] Employee Profileon Cholesterol in LDL [Mass/Vol] 112 mg/dL Normal 0-130 [facility] Comment on above: Performed By: #### L 100.0200, L400.0100, L500.2900 #### [facility] Laboratory [address] [place], [address] Erythrocyte distribution wid th ratioOrdered By: HEALTH ASSESSMENT on 03-13-2025 Erythrocyte distribution width (RBC) [Ratio] 12.2 % 11.6-14.6 [facility] Erythrocyte distribution wid th standard deviationOrdered By: HEALTH ASSESSMENT on 03-13-2025 Erythrocyte distribution width (RBC) [Ratio] 42.2 fl 35.1-43.9 [facility] Glomerular filtration rate ( GFR) estimation/1.73 sq m using serum, plasma, or whole bOrdered By: HEALTH ASSESSMENT on 03-13-2025 GFR/1.73 sq M.predicted among non-blacks MDRD (S/P/Bld) [Vol rate/Area] 120 mL/min/{1.73_m2} >60 [facility] Comment on above: mL/min/1.73m2 CKD-EP I Creatinine Equation (2020) Hematocrit Auto (Bld) [Volum e fraction]Ordered By: HEALTH ASSESSMENT on 03-13-2025 Hematocrit (Bld) [Volume fraction] 38.1 % 37-47 [facility] Hemoglobin measurementOrdere d By: HEALTH ASSESSMENT on 03-13-2025 Hemoglobin (Bld) [Mass/Vol] 12.7 g/dL 12.0-15.0 [facility] Laboratory - Chemistry and C hemistry - challengeOrdered By: HEALTH ASSESSMENT on 03-13-2025 AST [Catalytic activity/Vol] 22 U/L <32 [facility] Lactate dehydrogenase (LDH) measurementOrdered By: HEALTH ASSESSMENT on 03-13-2025 LDH [Catalytic activity/Vol] 138 U/L 84-246 [facility] MCV (mean corpuscular volume ) determinationOrdered By: HEALTH ASSESSMENT on 03-13-2025 MCV (RBC) [Entitic vol] 93.6 fL 81-99 [facility] Mean corpuscular hemoglobin (MCH) determinationOrdered By: HEALTH ASSESSMENT on 03-13-2025 MCH (RBC) [Entitic mass] 31.2 pg 27.0-32.0 [facility] Mean corpuscular hemoglobin concentration (MCHC) determinationOrdered By: HEALTH ASSESSMENT on 03-13-2025 MCHC (RBC) [Mass/Vol] 33.3 g/dL 32-36 [facility] Mean platelet volume determi nationOrdered By: HEALTH ASSESSMENT on 03-13-2025 Platelet mean volume (Bld) [Entitic vol] 9.1 fL 6.2-12.0 [facility] Neutrophil percentageOrdered By: HEALTH ASSESSMENT on 03-13-2025 Neutrophils/100 WBC (Bld) 51.7 % 47-70 [facility] Nucleated red blood cell per centageOrdered By: HEALTH ASSESSMENT on 03-13-2025 Nucleated RBC/100 WBC (Bld) [Ratio] 0 % 0-5 [facility] Platelet countOrdered By: HE ALTH ASSESSMENT on 03-13-2025 Platelets (Bld) [#/Vol] 240 10*3/uL 150-450 [facility] Potassium measurement (mass/ volume)Ordered By: HEALTH ASSESSMENT on 03-13-2025 Potassium (Unsp spec) [Mass/Vol] 4.0 mmol/L 3.3-5.1 [facility] RBC Auto (Bld) [#/Vol]Ordere d By: HEALTH ASSESSMENT on 03-13-2025 RBC (Bld) [#/Vol] 4.07 10*6/uL Low 4.2-5.4 [facility] Screening total cholesterol/ high density lipoprotein (HDL) cholesterol ratioOrdered By: HEALTH ASSESSMENT on 03-13-2025 Cholesterol.total/Choles terol in HDL [Mass ratio] 2.78 {ratio} [facility] Serum creatinine measurement (mass/volume)Ordered By: HEALTH ASSESSMENT on 03-13-2025 Creatinine [Mass/Vol] 0.71 mg/dL 0.70-1.20 [facility] Serum globulin measurementOr dered By: HEALTH ASSESSMENT on 03-13-2025 Globulin (S) [Mass/Vol] 2.4 g/dL 2.2-4.2 [facility] Serum glucose measurement (m ass/volume)Ordered By: HEALTH ASSESSMENT on 03-13-2025 Glucose [Mass/Vol] 89 mg/dL 70-99 [facility] Serum or plasma alanine mckeon otransferase (ALT) measurementOrdered By: HEALTH ASSESSMENT on 03-13-2025 ALT [Catalytic activity/Vol] 20 U/L <35 [facility] Serum or plasma albumin saeed urement (mass/volume)Ordered By: HEALTH ASSESSMENT on 03-13-2025 Albumin [Mass/Vol] 4.4 g/dL 3.5-5.0 [facility] Serum or plasma albumin/glob ulin mass ratioOrdered By: HEALTH ASSESSMENT on 03-13-2025 Albumin/Globulin [Mass ratio] 1.8 {ratio} 0.9-2.4 [facility] Serum or plasma alkaline lizy sphatase measurementOrdered By: HEALTH ASSESSMENT on 03-13-2025 ALP [Catalytic activity/Vol] 47 U/L 35-104 [facility] Serum or plasma calcium saeed urement (mass/volume)Ordered By: HEALTH ASSESSMENT on 03-13-2025 Calcium [Mass/Vol] 8.9 mg/dL 7.6-11.0 [facility] Serum or plasma cholesterol in HDL measurement (mass/volume)Ordered By: HEALTH ASSESSMENT on 03-13-2025 Cholesterol in HDL [Mass/Vol] 71 mg/dL >40 [facility] Comment on above: National Cholesterol Education Program (NCEP) guidelines:<40 mg/dL: Low HDL-cholesterol (major risk factor for CHD)>= 60 mg/dL: High HDL-cholesterol (negative risk factor for CHD)HDL-cholesterol is affected by a number of factors, e.g. smoking, exercise, hormones, sex and age. Serum or plasma cholesterol in LDL measurement (mass/volume)Ordered By: HEALTH ASSESSMENT on 03-13-2025 Cholesterol in LDL [Mass/Vol] 112 mg/dL 0-130 [facility] Serum or plasma cholesterol measurement (mass/volume)Ordered By: HEALTH ASSESSMENT on 03-13-2025 Cholesterol [Mass/Vol] 196 mg/dL <201 [facility] Comment on above: Cholesterol level, D esirable <200 mg/dLBorderline high cholesterol 200-239 mg/dLHigh cholesterol >=240 mg/dLRecommendations of the NCEP Adult Treatment Panel for the following risk-cutoff thresholds for the [place] population. Serum or plasma urea nitroge n measurement (mass/volume)Ordered By: HEALTH ASSESSMENT on 03-13-2025 Urea nitrogen [Mass/Vol] 16 mg/dL 4-19 [facility] Serum or plasma uric acid me asurement (mass/volume)Ordered By: HEALTH ASSESSMENT on 03-13-2025 Urate [Mass/Vol] 4.0 mg/dL 2.6-6.0 [facility] Comment on above: The drugs N-Acetylcy steine and Metamizole may falsely depress this assay. Sodium levelOrdered By: [facility] ASSESSMENT on 03-13-2025 Sodium [Moles/Vol] 141 mmol/L 133-145 [facility] Total proteinOrdered By: [facility] ASSESSMENT on 03-13-2025 Protein [Mass/Vol] 6.8 g/dL 5.9-8.4 [facility] Triglycerides measurementOrd ered By: HEALTH ASSESSMENT on 03-13-2025 Triglyceride [Mass/Vol] 65 mg/dL <199 [facility] Comment on above: The drugs N-Acetylcy steine and Metamizole may falsely depress this assay. Normal range: <150 mg/dLBorderline High: 150-199 mg/dLHigh: 200-499 mg/dLVery High: >500 mg/dL Urinalysis, Employeeon 03-13 BILIRUBIN URINE Normal Negative [facility] Comment on above: Order Comment: Urine , Random Result Comment: PT R EFUSED TEST Performed By: #### L 100.0200, L400.0100, L500.2900 #### [facility] Laboratory [address] [place], [address] Clarity (U) Normal Clear [facility] Comment on above: Order Comment: Urine , Random Result Comment: PT R EFUSED TEST Performed By: #### L 100.0200, L400.0100, L500.2900 #### [facility] Laboratory [address] [place], [address] Color (U) Normal Yellow [facility] Comment on above: Order Comment: Urine , Random Result Comment: PT R EFUSED TEST Performed By: #### L 100.0200, L400.0100, L500.2900 #### [facility] Laboratory [address] [place], [address] GLUCOSE, UR Normal Normal [facility] Comment on above: Order Comment: Urine , Random Result Comment: PT R EFUSED TEST Performed By: #### L 100.0200, L400.0100, L500.2900 #### [facility] Laboratory [address] [place], [address] KETONE UR Normal Negative [facility] Comment on above: Order Comment: Urine , Random Result Comment: PT R EFUSED TEST Performed By: #### L 100.0200, L400.0100, L500.2900 #### [facility] Laboratory [address] [place], [address] LEUK ESTERASE Normal Negative [facility] Comment on above: Order Comment: Urine , Random Result Comment: PT R EFUSED TEST Performed By: #### L 100.0200, L400.0100, L500.2900 #### [facility] Laboratory [address] [place], [address] Nitrite Ql (U) Normal Negative [facility] Comment on above: Order Comment: Urine , Random Result Comment: PT R EFUSED TEST Performed By: #### L 100.0200, L400.0100, L500.2900 #### [facility] Laboratory [address] [place], [address] OCCULT BLOOD-UR Normal Negative [facility] Comment on above: Order Comment: Urine , Random Result Comment: PT R EFUSED TEST Performed By: #### L 100.0200, L400.0100, L500.2900 #### [facility] Laboratory [address] [place], [address] pH UR Normal 5.0 - 8.0 [facility] Comment on above: Order Comment: Urine , Random Result Comment: PT R EFUSED TEST Performed By: #### L 100.0200, L400.0100, L500.2900 #### [facility] Laboratory [address] [place], [address] PROT DIPSTX Normal Negative [facility] Comment on above: Order Comment: Urine , Random Result Comment: PT R EFUSED TEST Performed By: #### L 100.0200, L400.0100, L500.2900 #### [facility] Laboratory [address] [place], [address] SP.GR. DIPSTX Normal 1.002-1.030 [facility] Comment on above: Order Comment: Urine , Random Result Comment: PT R EFUSED TEST Performed By: #### L 100.0200, L400.0100, L500.2900 #### [facility] Laboratory [address] [place], [address] UR Preservative Normal [facility] Comment on above: Order Comment: Urine , Random Result Comment: PT R EFUSED TEST Performed By: #### L 100.0200, L400.0100, L500.2900 #### [facility] Laboratory [address] [place], [address] UROBILI Normal Normal [facility] Comment on above: Order Comment: Urine , Random Result Comment: PT R EFUSED TEST Performed By: #### L 100.0200, L400.0100, L500.2900 #### [facility] Laboratory [address] [place], [address] White blood cell (WBC) count Ordered By: HEALTH ASSESSMENT on 03-13-2025 WBC (Bld) [#/Vol] 5.1 10*3/uL 4.4-11.0 [facility] Catering Server Office Visit Reporton 02-13-2025 Catering Server Office Visit Report [facility] [address], [address] [place] [address] OFFICE VISIT Date of Service: 02/13/25 MR#: [id number] Acct: [id number] Name: SCARLET HERNANDEZ Rep #: [id number] : 1995 Provider: RONALDO Romero Age/Sex: 29/F [place] [facility] [place] Signed Intake Vital Signs 06/25/24 08:25 02/13/25 11:08 02/13/25 11:11 Height 5 ft 4 in 5 ft 4 in 5 ft 4 in Weight: 117 lb BMI 20.0 BP 127/74 H Intake Visit Reasons: FERTILITY CONCERNS AND QUESTIONS *copay $20 Cable [employer] Required: No Is patient in pain?: No Allergies sulfamethoxazole (From Bactrim) Allergy (Intermediate, Verified 02/13/25 11:04) hives tetracycline Allergy (Intermediate, Verified 02/13/25 11:04) hives trimethoprim (From Bactrim) Allergy (Intermediate, Verified 02/13/25 11:04) hives Medications ???Medication ???Instructions ???Recorded ???Confirmed ???Type d-mannose 500 mg capsule mg PO .prn 02/14/22 02/13/25 Histo ry multivitamin 1 tab PO DAILY 02/14/22 02/13/25 H istory omega-3 fatty acids 300 mg-fish 1 cap PO DAILY 02/14/22 02/13/25 H istory oil 400 mg capsule (Fish Oil Pearls) montelukast 10 mg tablet 10 mg PO DAILY #90 tabs 02/12/23 0 02/13/25 Rx (Singulair) acne vitamin OTHER 03/20/24 02/13/25 History fosfomycin tromethamine 3 gram 3 g PO ONCE PRN dysuria #3 ea 02/13/25 Rx oral packet pms vitamin OTHER 03/20/24 02/13/25 History Is last menstrual period known: Yes Last Menstrual Period: 01/29/25 Post menopausal: No Patient : No : No Control Method: condoms PFSH Medical History IBS (irritable bowel syndrome) High cholesterol UTI (urinary tract infection) Allergies Surgical History History of removal of skin mole History of eye surgery Family History Mother Asthma Arthritis Autoimmune disorder RA and fibromyalgia Osteoporosis Skin cancer Brother Asthma Sister Thyroid disorder Thyroid cancer Father Arthritis Hypertension Grandfather Diabetes Grandmother Colon cancer Melanoma Hypertension Uncle Melanoma Social History adopted: No household members: spouse current occupational status: employed 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 She reports her and her has not attempting to try yet, but will be after a trip in March out of the country. She has some questions to discuss today. Female Reproductive History Last Menstrual Period: 01/29/25 History 0 Elective abortions Hx Para 0 Spontaneous abortions Hx # Term Pregnancies Ectopic pregnancies Hx # Pregnancies Multiple births # of living children 0 ROS Const Constitutional: Reports system reviewed and no additional complaints, except as documented Psych Psych: Reports system reviewed and no additional complaints, except as documented Exam Const General: cooperative, healthy appearing, comfortable, no acute distress and well developed Resp Effort Inspection: normal respiratory effort, able to speak in complete sentences and symmetric chest movement Coding Level of Care Code Established Pt Off vis,est,level 2 Patient Type Established Diagnoses Encounter for fertility planning Z31.89 Assessment and Plan Assessment and Plan (1) Encounter for fertility planning: Status: Acute Plan: Questions answered; call office with positive HPT If greater than 6 months let us know and set up infertility. 15 minutes spent in entirety of visit with review of health record; discussion; documentation and plan of care. 02/13/25 1145 Date Radha Barkman CERTIFIED HAND THERAPIST-C Cosigner Signature: Date (if applicable) CC: Normal [facility] Culture, urineOrdered By: St papo Her on 12-26-2023 Bacteria identified Cx Nom (U) Presumptive E. coli [facility] Laboratory - Chemistry and C hemistry - challengeon 12-26-2023 HCG ( test) Ql (U) Negative [facility] Bilirubin Ql (U) Negative [facility] Glucose Ql (U) Negative [facility] Ketones Ql (U) Negative [facility] pH (U) 6.5 [pH] [facility] Specific gravity (U) [Rel density] 1.010 [facility] Urobilinogen (U) [Mass/Vol] Negative [facility] Laboratory - Hematology and Cell countson 12-26-2023 Hemoglobin Ql (U) Moderate [facility] Laboratory - Specimen inform ationon 12-26-2023 Clarity (U) Cloudy [facility] Color (U) DARK YELLOW [facility] Laboratory - Urinalysison Nitrite Ql (U) Negative [facility] Protein Ql (U) Trace [facility] No Panel Informationon 12-25 Urine Leukocytes Positive [facility] Urine Non-Hemolyzed Blood [facility] Basophil percentageOrdered B y: Manuel Ge on 08-30-2023 Basophil percentage 0-5 SEEN /hpf 0-5 [facility] Bilirubin Test strip Ql (U)O rdered By: Manuel Ge on 08-30-2023 Bilirubin Ql (U) Negative Negative [facility] Culture, urineOrdered By: Marilyn Ge on 08-30-2023 Bacteria identified Cx Nom (U) Culture exhibits no growth. [facility] Ketones Test strip Ql (U)Ord ered By: Manuel Ge on 08-30-2023 Ketones Ql (U) Negative Negative [facility] Laboratory - Chemistry and C hemistry - challengeon 08-30-2023 Bilirubin Ql (U) Negative [facility] Glucose Ql (U) Negative [facility] Ketones Ql (U) Negative [facility] pH (U) 5.0 [pH] [facility] Specific gravity (U) [Rel density] 1.005 [facility] Urobilinogen (U) [Mass/Vol] Negative [facility] Laboratory - Hematology and Cell countson 08-30-2023 Hemoglobin Ql (U) Moderate [facility] Laboratory - Specimen inform ationon 08-30-2023 Clarity (U) Hazy [facility] Color (U) Colorless [facility] Laboratory - Urinalysison Nitrite Ql (U) Negative [facility] Protein Ql (U) Negative [facility] Mucus LM Ql (Urine sed)Order ed By: Manuel Ge on 08-30-2023 Mucus Ql (Urine sed) 0 SEEN /hpf [facility] Nitrite Test strip Ql (U)Ord ered By: Manuel Ge on 08-30-2023 Nitrite Ql (U) Negative Negative [facility] No Panel Informationon 08-30 Urine Leukocytes Positive [facility] Urine Non-Hemolyzed Blood Non-Hemolyzed [facility] Protein Test strip Ql (U)Ord ered By: Manuel Ge on 08-30-2023 Protein Ql (U) Negative Negative [facility] Squamous epithelial cells de tection in urine sediment by light microscopyOrdered By: Manuel Ge on 08-30-2023 Epithelial cells.squamous LM Ql (Urine sed) 0 SEEN /hpf 5-10 [facility] Urine blood detectionOrdered By: Manuel Ge on 08-30-2023 RBC Ql (U) 25 /ul Negative [facility] RBC Ql (U) 0 SEEN /hpf 0-5 [facility] Urine clarityOrdered By: Conor Ge on 08-30-2023 Clarity (U) Clear Clear [facility] Urine color determinationOrd ered By: Manuel Ge on 08-30-2023 Color (U) Straw Yellow [facility] Urine glucose detectionOrder ed By: Manuel Ge on 08-30-2023 Glucose Ql (U) Normal mg/dl Normal [facility] Urine leukocyte esterase det ection by dipstickOrdered By: Manuel Ge on 08-30-2023 Leukocyte esterase Test strip Ql (U) 100 /ul Negative [facility] Urine pHOrdered By: Manuel ayala on 08-30-2023 pH (U) 6.5 [pH] 5.0 - 8.0 [facility] Urine sediment bacteria coun t by microscopy (number/high power field)Ordered By: Manuel Ge on 08-30-2023 Bacteria LM.HPF (Urine sed) [#/Area] 0 /[HPF] None Seen [facility] Urine specific gravity measu rementOrdered By: Manuel Ge on 08-30-2023 Specific gravity (U) [Rel density] 1.005 1.002-1.030 [facility] Urobilinogen Auto test strip Ql (U)Ordered By: Manuel Ge on 08-30-2023 Urobilinogen Ql (U) Normal mg/dl Normal [facility] CNOVon 06-01-2023 CNOV Office Visit (OBGYWM) -------- DAVIDJACKSONSCARLET ([id number]) 1995 F Date Time Provider Department 06/01/23 7:00 AM BLESSING LIPSCOMB OBGYWM During your visit today, we recorded the following information about you: Blood pressure Weight Height Last Period 90/60 53.3 kg 1.626 m 04/30/23 Blessing Lipscomb APRN.PATIENT SUPPORT REPRESENTATIVE 06/01/2023 7:42 AM Signed patient declined samantha Novak is a 27 year old who presents [...] L0 SAB0 IAB0 Ectopic0 Multiple0 Live Births0 Mortgage Counselor History LMP: 04/30/2023, Having periods Age at Menarche: Age at First : Age at Menopause: Mortgage Counselor History Comments: Sexual Activity: Yes; Male Contraception: [...] external genitalia normal, normal Bartholin's glands, urethra, Marquez's glands, no vulvar lesions, no cervical lesions, [...] and natural cycles kit RX given Blessing Lipscomb APRN.PATIENT SUPPORT REPRESENTATIVE Allergies As of Date: 06/01/2023 Noted Allergy Reaction BACTRIM (SULFAMETHOXAZOLE- TRIMETH*06/18/2015 2 - Rash SOLODYN (MINOCYCLINE) 06/18/2015 4 - Hives TETRACYCLINE 04/20/2020 4 - Hives Date Reviewed: 06/01/2023 Reviewed by: Blessing Lipscomb APRN.PATIENT SUPPORT REPRESENTATIVE - Fully Assessed Reason for Visit: Yearly Exam [187] Primary Visit Diagnosis:Encounte r for gynecological examination (general) (routine) without abnormal findings [Z01.419] Other Visit Diagnosis:Encounte r for initial prescription of other contraceptives [Z30.018] Order(s):lactic kpwn-jehswe-kfhqps ium (PHEXXI) 1.8-1-0.4 % gelInsert 1 prefilled applicator vaginally immediately before or up to 1 hour before each act of vaginal intercourseDisp: 60 gRfl: 3 Prescriptions as of 06/01/2023 - lactic mtpd-wqsqnb-sdgzun ium (PHEXXI) 1.8-1-0.4 % gel Insert 1 prefilled applicator vaginally immediately before or up to 1 hour before each act of vaginal intercourse - docosahexaenoic acid/epa (FISH OIL ORAL) Take by mouth. - FA/mv,Ca,iron,min/ lycopene/lut (MULTIVITAL ORAL) Take by mouth. Problem List As Of Date 06/01/2023 Noted Resolved Dysmenorrhea [N94.6] 10/25/2015 Irritable bowel syndrome with constipation [K58*02/13/2023 Pure hypercholesterolem ia, unspecified [E (more content not included)... Normal [facility] Lina 06-01-2023 MAXIMILIANON Telephone (OBGYWM) -------- SCARLET HERNANDEZ ([id number]) 1995 F Date Time Provider Department 06/01/23 BLESSING LIPSCOMB During your visit today, we recorded the following information about you: JimmyAnne pimentel RICHARD 06/01/2023 9:19 AM Signed Prior authorization submitted for Phexxi. Will await further response from pt's insurance. Anne Velasquez Anne RAMOS 06/01/2023 12:40 PM Signed Received denial for Phexxi. Please advise. Storm through [employer] is over $300. Blessing Marcus LPN, APRN.CNP 06/01/2023 12:43 PM Signed I will send it to the [email or web address] if the pt would like me to do that. Please check with her. Blessing Lipscomb APRN.Anne Jackson LPN 06/01/2023 3:56 PM Signed Spoke with pt and she would like for you to sent to [facility]. No need to call pt back. Blessing Marcus LPN, APRN.CNP 06/01/2023 4:05 PM Signed RX sent to [facility]. Blessing Lipscomb APRN.CNP Allergies As of Date: 06/01/2023 Noted Allergy Reaction BACTRIM (SULFAMETHOXAZOLE- TRIMETH*06/18/2015 2 - Rash SOLODYN (MINOCYCLINE) 06/18/2015 4 - Hives TETRACYCLINE 04/20/2020 4 - Hives Date Reviewed: 06/01/2023 Reviewed by: Blessing Lipscomb APRN.MAXIMILIANO - Fully Assessed Reason for Visit: Insurance Authorization [[id number]] Order(s):lactic berk-oygfum-kogexd ium (PHEXXI) 1.8-1-0.4 % gelInsert 1 prefilled applicator vaginally immediately before or up to 1 hour before each act of vaginal intercourseDisp: 60 gRfl: 3 Prescriptions as of 06/01/2023 - lactic cmxk-asoxqx-pbgsot ium (PHEXXI) 1.8-1-0.4 % gel Insert 1 prefilled applicator vaginally immediately before or up to 1 hour before each act of vaginal intercourse - docosahexaenoic acid/epa (FISH OIL ORAL) Take by mouth. - FA/mv,Ca,iron,min/ lycopene/lut (MULTIVITAL ORAL) Take by mouth. Problem List As Of Date 06/01/2023 Noted Resolved Dysmenorrhea [N94.6] 10/25/2015 Irritable bowel syndrome with constipation [K58*02/13/2023 Pure hypercholesterolem ia, unspecified [E78.00] 02/13/2023 Prescriptions ordered this encounter Disp Refills Start End PHEXXI 1.8 %-1 %-0.4 % VAGINAL GEL 60 g 3 06/01/2023 Sig: Insert 1 prefilled applicator vaginally immediately before or up to 1 hour before each act of vaginal intercourse Medications Discontinued During This Encounter Prescriptions - lactic byuf-hlarzq-whrocq ium (PHEXXI) 1.8-1-0.4 % gel (Discontinued) Insert 1 prefilled applicator vaginally immediately before or up to 1 hour before each act of vaginal intercourse Encounter Status:Closed by BLESSING LIPSCOMB on 06/01/23 Normal [facility] Progress Noteon 11-22-2018 Personal Banker Authentication Interface Message Text Patient ID: Scarlet Arriaga is a 23 y.o. female. Her chief complaint(s) include: Cold Symptoms (ST. Eye drainage. Sx x 3 weeks.) Assessment 1. Acute sinusitis, recurrence not specified, unspecified location Plan Scarlet was seen today for cold symptoms. Diagnoses and all orders for this visit: Acute sinusitis, recurrence not specified, unspecified location - amoxicillin (AMOXIL) 500 MG capsule; Take 4 Caps (2,000 mg) by mouth 2 times daily for 10 days - pt to notify her dentist about current illness- has wisdom teeth extraction next week - call if worsening symptoms or no improvement Return if symptoms worsen or fail to improve. Subjective She is unaccompanied. Cough The onset has been acute. The duration has been 3 weeks. The pattern is persistent. Course: gotten better The patient's symptoms have included eye discharge (x 1 week, morning), congestion, rhinorrhea, sore throat, cough (productive at times, wet coughing) and shortness of breath. The patient's symptoms have included no fever, no decreased appetite, no decreased fluid intake, no trouble swallowing, no difficulty breathing, no headaches, no bilateral ear pain, no vomiting and no diarrhea. The patient has been exposed to no sick contacts. Primary Care Review of Systems Objective Vital Signs 11/22/18 1356 Temp: 36.4 C (97.5 F) TempSrc: Temporal Weight: 55.9 kg Body mass index is 21.01 kg/m . Physical Exam Constitutional: She appears well. HENT: Head: No sinus tenderness. Right Ear: Tympanic membrane normal. Left Ear: Tympanic membrane normal. Nose: Nasal discharge present. Mouth/Throat: Oropharynx is clear. Eyes: EOM are normal. Pupils are equal, round, and reactive to light. Neck: Normal range of motion. Neck supple. No neck rigidity or neck adenopathy. Cardiovascular: Normal rate, regular rhythm, S1 normal and S2 normal. Pulmonary/Chest: Effort normal and breath sounds normal. No stridor. No respiratory distress. Air movement is not decreased. She has no wheezes. She has no rhonchi. She has no rales. Exhibits no retraction. Abdominal: Soft. Bowel sounds are normal. She exhibits no distension and no mass. There is no tenderness. Skin: Capillary refill takes less than 3 seconds. Skin is warm. Vitals reviewed: Temperature 36.4 C (97.5 F), temperature source Temporal, weight 55.9 kg, last menstrual period 11/01/2018. Normal [facility] Progress Noteon 2018 Personal Banker Authentication Interface Message Text Patient ID: Scarlet Arriaga is a 23 y.o. female. Her chief complaint(s) include: 21+ YEAR WELL CHILD Assessment 1. Routine general medical examination at a health care facility 2. Constipation, unspecified constipation type 3. Diarrhea, unspecified type Plan Scarlet was seen today for 21+ year well child. Diagnoses and all orders for this visit: Routine general medical examination at a health care facility - Behavioral/Emotion al Assessment w Score - PHQ-9- score 0 Continue f/u with pharmacist apprentice for OCPs Constipation, unspecified constipation type Diarrhea, unspecified type - can be constipation and watery stools going around the hard constipation. Discussed can start OTC miralax daily. - keep food diary with bloating and if related to certain foods (?lactose) - RTC if persistent diarrhea despite no further constipation, persistent symptoms, worsening symptoms, weight loss, bloody stools, RLQ pain - will r/o IBD vs IBS Return in about 1 year (around 2019) for well check. 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 Taking OCPs and doing well (Follows pharmacist apprentice) Has alternating constipation and diarrhea for sometime. Seems to notice it more this past several months. Sometimes does not stool for about 3 days and then gets non bloody pellet like stools and then watery non bloody stools. Feels bloated (sometimes crampy) and sometimes feels better after stooling. Has not tried to see if related to foods. No fever/chills/sweat s. No weight loss. No vomiting. Cousin has IBD (chrohns) She is unaccompanied. 21+ YEAR WELL CHILD Home: Scarlet eats meals with family, has an adult to turn to for help and is permitted and able to make independent decisions. Education: She Is in sravan year of college and is doing well. Eating: Scarlet eats regular meals including fruits and vegetables, eats breakfast and has a calcium source. 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 Sex: Scarlet is sexually active. STD screening offered and declined. Her sexual partners are males. She identifies as heterosexual. Scarlet always uses condoms. Typically, she uses oral contraceptives and condoms as her current contraceptive method. She has previously been : no She has not had an STD. Suicidality: She has no suicidal ideation and has no homicidal ideation. Menstruation Last Menstrual Period: 2 weeks ago. Last Menstrual period: hormonal therapy Menstruation: regular periods Output Urine and Stool Pattern: Urine and Stool Pattern: no Normal stool pattern, constipation, normal urine pattern. Stool Consistency: hard/firm Sleep Sleeping Difficulty: no difficulty sleeping Hours of sleep at a time: 7 Teen Anticipatory Guidance The following anticipatory guidance was reviewed during the visit: Nutrition: limit junk food/fast food and soft drinks. Safety: home safety, use safety helmet/gear with activities and don't carry or use weapons. Social: avoid or limit screen time, explore heritage and cultural diversity, parental limits and consequences for unacceptable behavior and bullying. Health: age appropriate dental care, age appropriate sleep habits, elevated noise and hearing, avoid situations where drugs and alcohol are present, don't use tobacco/ alcohol/ drugs/ diet pills/ inhalants, don't smoke or chew tobacco, learn how to say 'no' to sex, identify adult who can give accurate information about sex, recognize that sexual feelings are normal but delay having sex, ask questions if concerned about feelings for same or opposite sex, contraception/prac jose safe sex/ use condoms, puberty/sexual development/contra ceptions/STDs, talk with trusted adult if feeling sad or nervous, discuss athletic conditioning/ weight training/weight supplements, learn to manage time and activities, be responsible for attendance/ homework/ course selection, learn about self and strengths, recognize and deal with stress, driving risks and limit sun exposure/use sunscreen. Screenings Previous Vaccine Reactions: No. Hearing Vision Concerns: The caregiver has no concerns about the patient's hearing. The caregiver has no concerns about the patient's vision. Hyperlipidemia Concerns: Negative Hyperlipidemia Screen Concerns: no BMI >95% Primary Care Review of Systems Objective Vital Signs 06/21/18 0857 BP: 98/60 Pulse: 56 Weight: 56.5 kg Height: 163.1 cm Body mass index is 21.24 kg/m . Physical Exam Constitutional: She appears well. She is active. No distress. HENT: Head: Atraumatic. Right Ear: Tympanic membrane and external ear normal. Left Ear: Tympanic membrane and external ear normal. Nose: Nose normal. No nasal deformity or nasal discharge. Mouth/Throat: Mucous membranes are moist. Dentition is normal. Oropharynx is clear. Eyes: Conjunctivae are normal. Pupils are equal, round, and reactive to light. Neck: Normal range of motion. Neck supple. No neck adenopathy. Cardiovascular: Normal rate, regular rhythm, S1 normal and S2 normal. No murmur heard. Pulses: Femoral pulses are 2+ on the right side, and 2+ on the left side Pulmonary/Chest: Effort normal and breath sounds normal. No respiratory distress. Exhibits no deformity. Abdominal: Soft. Bowel sounds are normal. She exhibits no distension and no mass. There is no hepatosplenomegaly . There is no tenderness. There is no rebound and no guarding. Genitourinary: Normal female external genitalia. Musculoskeletal: Back: She exhibits no scoliosis. Neurological: She is alert. She has normal strength. Skin: Capillary refill takes less than 3 seconds. No rash noted. No pallor. Skin is warm. Vitals reviewed: Blood pressure 98/60, pulse 56, height 163.1 cm, weight 56.5 kg, last menstrual period 06/10/2018. Normal [facility] Personal Banker Authentication Interface Message Text Scarlet Arriaga is a 23 y.o. female patient. Behavioral/Emotion al Assessment w Score - PHQ-9 Performed by: AGUSTINA SCHILLING Authorized by: AGUSTINA SCHILLING PHQ-9 See PHQ9 Flowsheet Feeling down, depressed, irritable or hopeless: Not at all Little interest or pleasure in doing things: Not at all Trouble falling or staying sleep, or sleeping too much: Not at all Poor appetite, weight loss, or overeating: Not at all Feeling tired or having little energy: Not at all Feeling bad about yourself - or feeling that you are a failure, or have let yourself or your family down: Not at all Trouble concentrating on things, like school work, reading or watching TV: Not at all Moving or speaking so slowly that other people could have noticed. Or the opposite - being so fidgety or restless that you were moving around a lot more than usual: Not at all Thoughts that you would be better off , or of hurting yourself in some way: Not at all In the past year have you felt depressed or sad most days, even if you felt OK sometimes?: No If you are experiencing any of the problems on this form, how difficult have these problems made it for you to do your work, take care of things at home or get along with other people?: Not difficult at all Has there been a time in the past month when you have had serious thoughts about ending your life?: No Have you ever, in your whole life, tried to kill yourself or made a suicide attempt?: No PHQ-9 Total Score: 0 Total Score Value: 0-4 No or Minimal Depression Screening follow - up plan completed?: No Electronically signed by: Agustina Schilling MD [facility] Office Visit: lizz beauchamp Documentation of current medications (procedure) Done Invalid Interpretation Code [facility] Fall risk assessment No Invalid Interpretation Code [facility] Protein mass conc Done Invalid Interpretation Code [facility] Tobacco smoking status NHIS Never Invalid Interpretation Code [facility] Tobacco smoking status NHIS Never smoker Invalid Interpretation Code [facility] Tobacco use CPHS Never smoker Invalid Interpretation Code [facility] Vital Signs Date Time Vital Sign Value Performing Clinician Facility 03-26-2025 14:08-0400 Body height 162.56 cm Surekha Sarabia CERTIFIED HAND THERAPIST-C Work Phone: [facility] 03-26-2025 14:08-0400 Body mass index (BMI) [Ratio] 20.3 kg/m2 Surekha Sarabia CERTIFIED HAND THERAPIST-C Work Phone: [facility] 03-26-2025 14:08-0400 Body temperature 98 [degF] Surekha Sarabia CERTIFIED HAND THERAPIST-C Work Phone: [facility] 03-26-2025 14:08-0400 Body weight 53.69 kg Surekha Sarabia CERTIFIED HAND THERAPIST-C Work Phone: [facility] 03-26-2025 14:08-0400 Diastolic blood pressure 70 mm[Hg] Surekha Sarabia CERTIFIED HAND THERAPIST-C Work Phone: [facility] 03-26-2025 14:08-0400 Heart rate 86 /min Surekha Sarabia CERTIFIED HAND THERAPIST-C Work Phone: [facility] 03-26-2025 14:08-0400 Respiratory rate 16 /min Surekha Culvero CERTIFIED HAND THERAPIST-C Work Phone: [facility] 03-26-2025 14:08-0400 SaO2% (BldA) [Mass fraction] 96 % Surekha Culvero CERTIFIED HAND THERAPIST-C Work Phone: [facility] 03-26-2025 14:08-0400 Systolic blood pressure 116 mm[Hg] Surekha Sarabia CERTIFIED HAND THERAPIST-C Work Phone: [facility] 02-13-2025 11:11-0400 Body height 162.56 cm Surekha Sarabia CERTIFIED HAND THERAPIST-C Work Phone: [facility] 02-13-2025 11:08-0400 Body mass index (BMI) [Ratio] 20 kg/m2 Surekha Cornell CERTIFIED HAND THERAPIST-C Work Phone: [facility] 02-13-2025 11:08-0400 Body weight 53.07 kg Surekha Cornell CERTIFIED HAND THERAPIST-C Work Phone: [facility] 02-13-2025 11:08-0400 Diastolic blood pressure 74 mm[Hg] Surekha Cornell CERTIFIED HAND THERAPIST-C Work Phone: [facility] 02-13-2025 11:08-0400 Systolic blood pressure 127 mm[Hg] Surekha Sarabia CERTIFIED HAND THERAPIST-C Work Phone: [facility] 12-26-2023 07:10-0400 Body temperature 98.2 [degF] Dr. Kaylyn Walter Work Phone: [facility] 12-26-2023 07:10-0400 Diastolic blood pressure 64 mm[Hg] Dr. Kaylyn Walter Work Phone: [facility] 12-26-2023 07:10-0400 Heart rate 98 /min Dr. Kaylyn Walter Work Phone: [facility] 12-26-2023 07:10-0400 Respiratory rate 14 /min Dr. Kaylyn Walter Work Phone: [facility] 12-26-2023 07:10-0400 SaO2% (BldA) [Mass fraction] 99 % Dr. Kaylyn Walter Work Phone: [facility] 12-26-2023 07:10-0400 Systolic blood pressure 102 mm[Hg] Dr. Kaylyn Walter Work Phone: [facility] 12-24-2023 10:31-0400 Body height 162.[address] Kaylyn Walter Work Phone: [facility] 08-30-2023 15:13-0500 Body temperature 98.1 [degF] Dr. Kaylyn Walter Work Phone: [facility] 08-30-2023 15:13-0500 Diastolic blood pressure 70 mm[Hg] Dr. Kaylyn Walter Work Phone: [facility] 08-30-2023 15:13-0500 Heart rate 102 /min Dr. Kaylyn Walter Work Phone: [facility] 08-30-2023 15:13-0500 Respiratory rate 12 /min Dr. Kalyyn Walter Work Phone: [facility] 08-30-2023 15:13-0500 SaO2% (BldA) [Mass fraction] 97 % Dr. Kaylyn Walter Work Phone: [facility] 08-30-2023 15:13-0500 Systolic blood pressure 104 mm[Hg] Dr. Kaylyn Walter Work Phone: [facility] 05-22-2017 08:03-0400 BMI (Body Mass Index) 20.77 kg/m2 Lynnette Trejo NP [facility] 05-22-2017 08:03-0400 Body Temperature 96.3 [degF] Lynnette Trejo NP [facility] 05-22-2017 08:03-0400 BP Diastolic 67 mm[Hg] Lynnette Trejo NP [facility] 05-22-2017 08:03-0400 BP Systolic 100 mm[Hg] Lynnette Trejo NP [facility] 05-22-2017 08:03-0400 Height 162.56 cm Lynnette Trejo NP [facility] 05-22-2017 08:03-0400 Pulse (Heart Rate) 89 /min Lynnette Trejo [facility][1] 05-22-2017 08:03-0400 Respiratory Rate 16 /min Lynnette Trejo NP [facility] 05-22-2017 08: Weight 54.89 kg Lynnette Hillsdale CERTIFIED HAND THERAPIST [facility] 05-22-2017 08:[id number] Weight 54.88 kg Lynnette Lynchtings CERTIFIED HAND THERAPIST [facility] Encounters Encounter Date Encounter Type Care Provider Facility Start: 07-17-2025 ambulatory Kaylyn Acevedolay Facility :[facility] Start: 07-03-2025 End: 07-03-2025 ambulatory Kaylyn Walter Facility:[facility] Start: 07-03-2025 End: 07-03-2025 ambulatory Rosaura Iniguez Facility:[facility] Start: 03-26-2025 End: 03-26-[address] Kaylyn Walter MD -[facility] Work Phone: Start: 03-26-2025 End: 03-26-2025 ambulatory Surekha Sarabia NP-C Work Phone: -[facility] Start: 03-13-2025 Registered Referred HEALTH RIS K ASSESSMENT -Employee Health Start: 03-13-2025 ambulatory Health Risk Assessment Facility:[facility] Start: 02-13-2025 End: 02-13-2025 Patient encounter procedure Radha JOSUEC -[facility] Work Phone: Start: 02-13-2025 End: 02-13-2025 ambulatory Surekha Sarabia NP-C Work Phone: [facility] Work Phone: Start: 03-20-2024 Patient encounter procedure Surekha Sarabia NP-C Work Phone: [facility] Start: 12-26-2023 End: 12-26-[address] Kaylyn Walter Work Phone: [facility] Work Phone: Start: 12-26-2023 End: 12-26-[address] Kaylyn Walter Work Phone: [facility] Work Phone: Start: 12-26-2023 End: 12-26-[address] Kaylyn Walter Work Phone: [facility] Work Phone: Start: 12-24-2023 End: 12-24-[address] Kaylyn Walter Work Phone: [facility] Work Phone: Start: 08-30-2023 End: 08-30-[address] Kaylyn Walter Work Phone: [facility] Work Phone: Start: 08-30-2023 End: 08-30-[address] Kaylyn Walter Work Phone: [facility] Work Phone: Start: 06-01-2023 Telephone encounter Blessing bob ZYGLO TECHNICIAN.PATIENT SUPPORT REPRESENTATIVE Work Phone: OB/Gynecology Comment on above: Insurance Authorizat ion Start: 06-01-2023 End: 06-01-2023 ambulatory BLESSING YOANNA Facility:[facility] Start: 11-22-2018 End: 11-22-2018 Patient encounter procedure [facility] Start: 10-23-2018 Patient encounter procedure [facility] Start: 10-21-2018 End: 10-21-2018 Patient encounter procedure YOSHI GAONA [facility] Start: 2018 End: 2018 Patient encounter procedure [facility] Start: 06-07-2018 Patient encounter procedure MAISHA FARMER [facility] Procedures Date Procedure Procedure Detail Performing Clinician Start: 03-13-2025 Serum inorganic phosphate measurement Surekha HIGGINS Work Phone: Start: 12-26-[address] Kaylyn Walter Work Phone: Start: 08-30-[address] Kaylyn Walter Work Phone: Start: 05-22-2017 Contraception care education Contraception counseling Lynnette Trejo NP Plan of Treatment Date Care Activity Detail Author Start: 01-23-2028 Urine microalbumin profile DTaP,Tdap,Td Vaccine (2 - Td or Tdap) [facility] Start: 04-21-2025 Pap Testing Pap Testing [facility] Start: 05-04-2023 Influenza vaccination Influenza Vaccine (#1) [facility] Start: 09-03-2022 Depression Assessment Depression Assessment [facility] Start: 03-17-2021 Covid-19 Vaccine (2 - Booster for Jeffery series) Covid-19 Vaccine (2 - Booster for Jeffery series) [facility] Start: 05-25-2017 End: 05-25-2017 Appointment Appointment [facility] Start: 05-22-2017 End: 05-22-[address] [facility] Start: 2011 Peds To Adult Transition Annual Assessment Peds To Adult Transition Annual Assessment [facility] Start: 2009 Peds To Adult Transition Initial Discussion Peds To Adult Transition Initial Discussion [facility] Start: 1997 Hepatitis B Vaccine (1 of 3 - 3-dose series) Hepatitis B Vaccine (1 of 3 - 3-dose series) [facility] Immunizations Immunization Date Immunization Notes Care Provider Marylin xiong 07-28-2024 influenza, seasonal, injectable, preservative free Surekha Sarabia CERTIFIED HAND THERAPIST-C Work Phone: [facility] 07-23-2023 influenza, injectabl e, quadrivalent, preservative free Dr. Kaylyn Walter Work Phone: [facility] 02-12-2023 tetanus toxoid, redu rhonda diphtheria toxoid, and acellular pertussis vaccine, adsorbed Dr. Kaylyn Walter Work Phone: [facility] 07-10-2022 influenza, injectabl e, quadrivalent, preservative free Dr. Kaylyn Walter Work Phone: [facility] 07-10-2022 influenza virus vacc ine, unspecified formulation Blessing Lipscomb APRN.PATIENT SUPPORT REPRESENTATIVE Work Phone: [facility] 05-24-2021 Influenza, high dose seasonal Surekha Cornell CERTIFIED HAND THERAPIST-C Work Phone: [facility] 05-24-2021 influenza, high dose seasonal, preservative-free Blessing Kittanning ZYGLO TECHNICIAN.PATIENT SUPPORT REPRESENTATIVE Work Phone: [facility] 01-20-2021 Covid (Tian & Tian) Dr. Kaylyn Walter Work Phone: [facility] 06-11-2019 influenza, injectabl e, quadrivalent, contains preservative Blessing Kittanning ZYGLO TECHNICIAN.PATIENT SUPPORT REPRESENTATIVE Work Phone: [facility] 06-11-2019 influenza, injectabl e, quadrivalent, preservative free Dr. Kaylyn Walter Work Phone: [facility] 06-07-2018 influenza, injectabl e, quadrivalent, preservative free Dr. Kaylyn Walter Work Phone: [facility] 06-22-2017 influenza, injectabl e, quadrivalent, preservative free Dr. Kaylyn Walter Work Phone: [facility] 08-23-[address] Kaylyn Walter Work Phone: [facility] 06-29-2016 influenza, injectabl e, quadrivalent, preservative free Dr. Kaylyn Walter Work Phone: [facility] 06-24-2015 influenza, injectabl e, quadrivalent, preservative free Dr. Kaylyn Walter Work Phone: [facility] 10-22-2014 meningococcal polysaccharide (groups A, C, Y and W-135) diphtheria toxoid conjugate vaccine (MCV4P) Dr. Kaylyn Walter Work Phone: [facility] 07-01-2014 influenza, injectabl e, quadrivalent, preservative free Dr. Kaylyn Walter Work Phone: [facility] 09-01-2013 influenza, injectabl e, quadrivalent, preservative free Dr. Kaylyn Walter Work Phone: [facility] 2012 influenza, injectabl e, quadrivalent, preservative free Dr. Kaylyn Walter Work Phone: [facility] 06-29-2011 influenza, injectabl e, quadrivalent, preservative free Dr. Kaylyn Walter Work Phone: [facility] 07-07-2010 influenza, injectabl e, quadrivalent, preservative free Dr. Kaylyn Walter Work Phone: [facility] 12-30-2009 novel influenza-H1N1 -09, preservative-free, injectable Dr. Kaylyn Walter Work Phone: [facility] 12-23-2009 tetanus toxoid, redu rhonda diphtheria toxoid, and acellular pertussis vaccine, adsorbed Dr. Kaylyn Walter Work Phone: [facility] 10-28-2009 human papilloma viru s vaccine, quadrivalent Dr. Kaylyn Walter Work Phone: [facility] 07-13-2009 novel influenza-H1N1 -09, preservative-free, injectable Dr. Kaylyn Walter Work Phone: [facility] 06-22-2009 human papilloma viru s vaccine, quadrivalent Dr. Kaylyn Walter Work Phone: [facility] 06-01-2009 influenza, injectabl e, quadrivalent, preservative free Dr. Kaylyn Walter Work Phone: [facility] 04-20-2009 human papilloma viru s vaccine, quadrivalent Dr. Kaylyn Walter Work Phone: [facility] 04-20-2009 meningococcal polysaccharide (groups A, C, Y and W-135) diphtheria toxoid conjugate vaccine (MCV4P) Dr. Kaylyn Walter Work Phone: [facility] 06-26-2008 influenza, injectabl e, quadrivalent, preservative free Dr. Kaylyn Walter Work Phone: [facility] 03-26-2008 hepatitis A vaccine, pediatric/adolescent dosage, [address] Kaylyn Walter Work Phone: [facility] 07-11-2007 influenza, injectabl e, quadrivalent, preservative free Dr. Kaylyn Walter Work Phone: [facility] 03-11-2007 hepatitis A vaccine, pediatric/adolescent dosage, [address] Kaylyn Walter Work Phone: [facility] 03-11-[address] Kaylyn Walter Work Phone: [facility] 08-12-2003 influenza, injectabl e, quadrivalent, preservative free Dr. Kaylyn Walter Work Phone: [facility] 08-07-2002 diphtheria, tetanus toxoids and acellular pertussis vaccine Dr. Kaylyn Walter Work Phone: [facility] 08-07-2002 measles, mumps and rubella virus vaccine Dr. Kaylyn Walter Work Phone: [facility] 08-07-2002 poliovirus vaccine, inactivated Dr. Kaylyn Walter Work Phone: [facility] 12-20-1998 diphtheria, tetanus toxoids and acellular pertussis vaccine Dr. Kaylyn Walter Work Phone: [facility] 12-20-1998 haemophilus influenz ae type b vaccine, PRP-T conjugate Dr. Kaylyn Walter Work Phone: [facility] 12-20-[address], inactivated [address] Kaylyn Walter Work Phone: [facility] 12-20-[address] Kaylyn Walter Work Phone: [facility] 06-25-1998 measles, mumps and rubella virus vaccine Dr. Kaylyn Walter Work Phone: [facility] 01-21-1998 diphtheria, tetanus toxoids and acellular pertussis vaccine Dr. Kaylyn Walter Work Phone: [facility] 01-21-1998 haemophilus influenz ae type b vaccine, PRP-T conjugate Dr. Kaylyn Walter Work Phone: [facility] 01-21-1998 hepatitis B vaccine, pediatric or pediatric/adolescent dosage Dr. Kaylyn Walter Work Phone: [facility] 1997 diphtheria, tetanus toxoids and acellular pertussis vaccine Dr. Kaylyn Walter Work Phone: [facility] 1997 haemophilus influenz ae type b vaccine, PRP-T conjugate Dr. Kaylyn Walter Work Phone: [facility] 1997 poliovirus vaccine, inactivated Dr. Kaylyn Walter Work Phone: [facility] 1997 diphtheria, tetanus toxoids and acellular pertussis vaccine Dr. Kaylyn Walter Work Phone: [facility] 1997 haemophilus influenz ae type b vaccine, PRP-T conjugate Dr. Kaylyn Walter Work Phone: [facility] 1997 poliovirus vaccine, inactivated Dr. Kaylyn Walter Work Phone: [facility] 1997 hepatitis B vaccine, pediatric or pediatric/adolescent dosage Dr. Kaylyn Walter Work Phone: [facility] 1997 hepatitis B vaccine, pediatric or pediatric/adolescent dosage Dr. Kaylyn Walter Work Phone: [facility] Payers Date Payer Category Payer Self-pay [id number] 2022 Private Health Insurance [facility] [id number] 2022-Present [phone] [address] [place] [id number] PPO [id number] 2022 Private Health Insurance [id number] 2013 Unknown [id number] 1997 Unknown [id number] 79 1997 Unknown [id number] 79 1997 Unknown [id number] 79 1997 Unknown [id number] 79 1997 Unknown [id number] 79 Unknown [facility] DO NOT USE 22 [id number] Unknown [id number] 62 Unknown [id number] 62 Unknown [id number] 62 Unknown [id number] 62 Unknown [id number] 62 Unknown [id number] 62 Social History Date Type Detail Facility Start: 06-01-2023 End: 03-26-2025 Tobacco smoking status DCIS Never smoked tobacco [facility] Work Phone: Start: 06-01-2023 Tobacco use and exposure Smokeless tobacco non-user [facility] Work Phone: Start: 06-01-2023 Alcohol intake Current drinke r of alcohol (finding) [facility] Start: 07-20-2020 End: 06-01-2023 History of Social function [facility] Start: 07-20-2020 End: 06-01-2023 Social connection and isolation panel [facility] Frequency of Social Gatherings with Friends and Family Not on file [facility] Work Phone: Do you belong to any clubs or organizations such as pentecostal groups, unions, fraternal or athletic groups, or school groups? No [facility] How often to you hav e a drink containing alcohol? 2-3 time sa week [facility] How many standard drinks containing alcohol do you have on a typical day? 1 or 2 [facility] How often do you hav e 6 or more drinks on 1 occasion? Never [facility] Do you feel stress - tense, restless, nervous, or anxious, or unable to sleep at night because your mind is troubled all the time - these days [OSQ] To some extent [facility] (I/We) worried wheth er (my/our) food would run out before (I/we) got money to buy more. Never true [facility] Work Phone: Start: 07-06-2020 Education 17 [facility] Start: 06-11-2019 Alcohol Comment social [facility] Start: 1997 Sex Assigned At Female C [facility] Start: 06-05-2019 Gender identity Identifies as female gender (finding) [facility] Start: 06-05-2019 Sexual orientation Heterosexual (fin [place]) [facility] Start: 08-30-2023 End: 12-24-2023 Tobacco smoking status NHIS Unknown if ever smoked [facility] NEGATED: Highlighted rowStart: ESTHERF History of tobacco use Passive smoker [facility] Work Phone: Evaluation note 02-13-2025 Note Date & Type Note Facility 02-13-2025 Evaluation note Diagnosis Onset Date Resolution Encounter for fertility planning acute February 13, 2025 11:03am Allergies acute March 26 1:59pm Annual physical exam acute March 26, 2025 1:59pm IBS (irritable bowel syndrome) acute March 26, 2025 1:59pm UTI (urinary tract infection) acute March 26, 2025 1:59pm Establishing care with new doctor, encounter for noneactive March 26, 2025 1:59pm [facility] [employer] [facility] Work Phone: Note 06-01-2023 Telephone Encounter - Blessing Lipscomb APRN.CNP - 06/01/2023 4:05 PM EDTTelephone Encounter - Anne Velasquez LPN - 06/01/2023 3:55 PM EDT Note Date & Type Note Facility 06-01-2023 Miscellaneous Notes Formattin g of this note might be different from the original. RX sent to [facility]. Blessing Lipscomb APRN.MAXIMILIANO Spoke with pt and she would like for you to sent to [facility]. No need to call pt back. Anne Velasquez LPN I will send it to the [facility] if the pt would like me to do that. Please check with her. Blessing Lipscomb APRN.MAXIMILIANO Received denial for Phexxi. Please advise. Storm through [employer] is over $300. Anne Velasquez LPN Prior authorization submitted for Phexxi. Will await further response from pt's insurance. Anne Velasquez LPN documented in this encounter [facility] Progress note 06-01-2023 Note Date & Type Note Facility 06-01-2023 Note HNO ID: [id number] Author: Blessing Lipscomb APRN.PATIENT SUPPORT REPRESENTATIVE Service: ? 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 Work Phone: Evaluation note Note Date & Type Note Facility Evaluation note No assessment information availa ble [facility] Work Phone: Reason for referral (narrative) Note Date & Type Note Facility Reason for referral (narrative) No reason for referral information available [facility] Work Phone: Summary Purpose Family History No Family History Records Found Relationship Condition Age at Onset Recorded Date/T rosa mother Asthma Unknown Arthritis Unknown Autoimmune disorder Unknown Osteoporosis Unknown Malignant neoplasm of skin Unknown brother Asthma Unknown sister Disorder of thyroid Unknown Malignant neoplasm of thyroid gland Unkno wn father Arthritis Unknown Hypertension Unknown grandfather Diabetes mellitus Unknown grandmother Malignant neoplasm of colon Unknown Malignant melanoma Unknown uncle Malignant melanoma Unknown Relationship Condition Age at Onset Recorded Date/T rosa mother Asthma Unknown Arthritis Unknown Autoimmune disorder Unknown Osteoporosis Unknown Malignant neoplasm of skin Unknown brother Asthma Unknown sister Disorder of thyroid Unknown Malignant neoplasm of thyroid gland Unkno wn father Arthritis Unknown Hypertension Unknown grandfather Diabetes mellitus Unknown Malignant neoplasm Unknown grandmother Malignant neoplasm of colon Unknown Malignant melanoma Unknown uncle Malignant melanoma Unknown Advance Directives No Advanced Directives Records FoundNo Advanced Directives Records FoundNo Advanced Directives Records Found Reason for Referral Specialty Diagnoses / Procedures Referred By Cameron martínez Referred To Contact Blessing Lipscomb APRN.MAXIMILIANO [address] [place] [address] Referral ID Status Reason Start Date Expiration Date Visits Re quested Visits Authorized [id number] Closed 1 1 Chief Complaint and Reason for Visit Chief Complaint Urinary tract infect ion Reason for Visit Urinary tract infect ion Chief Complaint URINARY COMPLAINTS/U TI URINARY SYMPTOMS/UTI Chief Complaint Admit Date FERTILITY CONCERNS AND QUESTIONS *copay $20 February 13, 2025 11:03am Chief Complaint Admit Date FERTILITY CONCERNS AND QUESTIONS *copay $20 February 13, 2025 11:03am EM[employer] March 13, 2025 6:22 am YEARLY/RE-EST, SUREKHA PATIENT-OK PER DR Bassem MEZA March 26, 2025 1:59pm Reason for Visit Admit Date Encounter for fertility planning February 132024 11:03am Allergies March 26, 2025 1:59 pm Annual physical exam March 26, 2025 1:5 9pm IBS (irritable bowel syndrome) March 1:59pm UTI (urinary tract infection) March 26, 2025 1:59pm Establishing care with new doctor, savannah bradley for March 26, 2025 1:59pm Additional Source Comments INFORMATION SOURCE (unrecogn ized section and content) DATE CREATED AUTHOR 11/23/2018 [facility] DATE CREATED AUTHOR AUTHOR'S ORGANIZ ATION 06/08/2023 [facility] DATE CREATED AUTHOR AUTHOR'S ORGANIZ ATION 07/15/2025 [facility] Source Comments (unrecognize d section and content) In the event this informatio n is protected by the Federal Confidentiality of Alcohol and Drug Abuse Patient Records regulations: The Federal rules restrict any use of the information to criminally investigate or prosecute any alcohol or drug abuse patient.[facility] Reason for Visit (unrecogniz ed section and content) Reason Comments Insurance Authorization Care Teams (unrecognized sec tion and content) Artist Representative Relationship Specialty Start Date End Date Diana Paige MD [address] [place] [address] PCP - General Internal Medicine 05/26/21 Team Status: Active Member Role Status Dates Dr. Allie Moreno MD Family Provider Active Dr. Kaylyn Walter MD Primary Care Provider Active Team Status: Inactive Member Role Status Dates Dr. Kaylyn Walter MD Primary Care Provider, Referri ng Provider Active NED Whitney Attending Provider Active Team Status: Inactive Member Role Status Dates Dr. Kaylyn Walter MD Primary Care Provider Active NED Whitney Attending Provider Active Team Status: Inactive Member Role Status Dates Dr. Kaylyn Walter MD Primary Care Provider, Referri ng Provider Active NED Kang Attending Provider Active Team Status: Inactive Member Role Status Dates Dr. Kaylyn Walter MD Primary Care Provider Active NED Kang Attending Provider, Referring Pr ovider Active Team Status: Active Member Role Status Dates Dr. Allie Moreno MD Family Provider Active RONALDO Head Primary Care Provider Active Team Status: Inactive Member Role Status Dates RONALDO Head Primary Care Provider Active Start: February 13, 2025 End: February 13, 2025 RONALDO Head Referring Provider Active S tart: February 13, 2025 End: February 13, 2025 RONALDO León Attending Provider Active Start: February 13, 2025 End: February 13, 2025 Team Status: Active Member Role/Relationship Status Dates Dr. Kaylyn Walter MD Primary Care Provider Active Team Status: Inactive Member Role/Relationship Status Dates RONALDO Head Primary Care Provider Active Start: February 13, 2025 End: February 13, 2025 Surekha Ferullo , CERTIFIED HAND THERAPIST-C Referring Provider Active S tart: February 13, 2025 End: February 13, 2025 RONALDO León Attending Provider Active Start: February 13, 2025 End: February 13, 2025 Team Status: Active Member Role/Relationship Status Dates Dr. Kaylyn Walter MD Primary Care Provider Active Start: March 13, 2025 Health Risk Assessment Attending Provider Active Start: March 13, 2025 Health Risk Assessment Referring Provider Active Start: March 13, 2025 Team Status: Inactive Member Role/Relationship Status Dates Surekha Sarabia NP-C Referring Provider Active S tart: March 26, 2025 End: March 26, 2025 Dr. Kaylyn Walter MD Primary Care Provider Active Start: March 26, 2025 End: March 26, 2025 Dr. Kaylyn Walter MD Attending Provider Active Start: March 26, 2025 End: March 26, 2025 Goals (unrecognized section and content) Goals may be documented in a n alternate sectionGoals may be documented in an alternate sectionGoals may be documented in an alternate sectionGoals may be documented in an alternate section FOR RECORDS PERTAINING TO PATIENTS WHO ARE [...] BE BASED ON THE PRIMARY CLINICAL RECORDS. [employer] provides no warranty or guarantee of the accuracy or completeness of information in this document.
== END | disposition home or self-care (01) ==
PROVIDERS: PCP Internal Medicine; Visit Provider Obstetrics & Gynecology
DX: O09.90 Supervision of high risk pregnancy, unspecified, unspecified trimester (principal); Z3A.00 Weeks of gestation of pregnancy not specified
CPT/HCPCS: 36415; 85025; 86703; 86762; 86780; 86803; 86850; 86900; 86901; 87340